=== PATIENT | male | born 1950 | race Caucasian/White ===

== ENCOUNTER 2021-01-05 16:41 | Inpatient (IN) | payer MEDICARE ==
[~2021-01-05] VITALS: Ht 182.9 cm; Wt 91.0 kg
[~2021-01-05 16:41] MED LIST: AMLO10TA4 PO; ASPI-630 PO; ATOR10TA PO; BUPR100T8 PO; CARV25TA PO; CLON0.3T PO; DOXA4TAB3 PO; FURO-69 PO; INSU100I13 SQ; INSU100V6 SQ; LISI20TA18 PO; OMEP20TA63 PO; ZOLP5TAB PO
--- NOTE | 2021-01-05 16:59 | PHYS DOC ---
Past Medical History Smoking Status: Former Smoker (SEGUN VARGAS DO) General Adult EDM: Chief Complaint: DIZZY/LIGHT HEADED HPI: HPI: 30-year-old male past medical history of diabetes, hypertension, depression and hydrocephalypresents to the ED brought in by [facility] from home (lives alone), with concern for dizziness and vomiting, such that patient thought he was going to faint and he fell out of his wheelchair. Glucose per ems was in the 200s. Home health aide is new to pt but reported he wasn't acting appropriately. Patient is nonambulatory. Patient reports he had full recall of today's events. Denies any alcohol or drug use. Does report constipation for the past 3 days and states he had a small amount of blood with his bowel movement 3 days ago. Complains of neck pain but states he did not hit his head when he "slid" out of the wheelchair. Last meal was this morning. Reports nausea and 1 episode of vomiting when feeling dizzy described as " I thought I was going to pass out." EMR was reviewed and patient was admitted in May 2020 for new stroke evaluation after patient had a syncopal episode with aphasia, MRI revealed normal pressure hydrocephaly. Neurology was concerned for hypertensive emergency. Reports he is on any anticoagulants. (SEGUN VARGAS DO) Review of Systems: Review of Systems: Constitutional: Denies fever or chills. [] Eyes: Denies change in visual acuity. [] HENT: Denies nasal congestion or sore throat. [] Respiratory: Denies cough or shortness of breath. [] Cardiovascular: Denies chest pain or edema. [] GI: Denies vomiting, bloody stools or diarrhea. [] : Denies saddle anesthesia or incontinence Musculoskeletal: Denies back pain or joint pain. [] Integument: Denies rash or diaphoresis Neurologic: Denies headache, focal weakness or sensory changes. [] Endocrine: Denies polyuria or polydipsia. [] Lymphatic: Denies swollen glands. [] Psychiatric: Denies depression or anxiety. [] (SEGUN VARGAS DO) Heart Score: C/O Chest Pain: No Risk Factors: Risk Factors: DM, Current or recent (<one month) smoker, HTN, HLP, family history of CAD, obesity. Risk Scores: Score 0 - 3: 2.5% MACE over next 6 weeks - Discharge Home Score 4 - 6: 20.3% MACE over next 6 weeks - Admit for Clinical Observation Score 7 - 10: 72.7% MACE over next 6 weeks - Early Invasive Strategies ([facility] Allergies: Allergies: Allergies Coded Allergies Type Severity Reaction Last Updated Verified morphine Allergy Intermediate 06/19/20 Yes ([facility]) Physical Exam: PE: Constitutional: Well developed, well nourished, no acute distress, non-toxic appearance. HENT: Normocephalic, atraumatic, very dry mucous membranes Eyes: PERRLA (2mm), EOMI, conjunctiva normal, no discharge, no nystagmus Neck: Normal range of motion, supple, no midline neck pain Cardiovascular: S1/2 present, regular rhythm Lungs & Thorax: Speaking in full sentences, bilateral equal chest rise, no tachypnea or increased work of breathing Abdomen: soft, no tenderness, slightly distended Skin: Warm, dry, no erythema, no rash. [] Extremities: No tenderness, no cyanosis, Neurologic: Alert and oriented X 3, normal motor function, normal sensory function, moves all 4 extremities, CN2-12 intact, NIHSS0, Psychologic: Flat affect, calm mood ([facility]) EKG: EKG: Sinus rhythm 60 bpm, left axis deviation, QRS 148, right bundle branch block present, no T wave inversion, no ST elevation or ST depression ([facility] Radiology/Procedures: Radiology/Procedures: [] ([facility]) Radiology/Procedures: Examination: CT head and cervical spine without contrast CT HEAD INDICATION: Dizziness, lightheadedness, fall COMPARISON: None Available. Exposure: One or more of the following individualized dose reduction techniques were utilized for this examination: 1. Automated exposure control 2. Adjustment of the mA and/or kV according to patient size 3. Use of iterative reconstruction technique TECHNIQUE: 5 mm contiguous axial images were obtained from the skull base to the vertex in both bone and soft tissue algorithm. FINDINGS: Moderate bilateral periventricular white matter hypodensities likely chronic small vessel ischemic disease. No evidence of acute intracranial hemorrhage. No extra-axial fluid collections. No mass effect or midline shift. Enlarged appearing bilateral lateral ventricles. Small hypodensities identified in the right and left cerebellum lik keisha old infarcts. No fractures identified.Mendoza-white differentiation is preserved.Globes and orbits are within normal limits. Paranasal sinuses and mastoid air cells are clear. CT CERVICAL SPINE INDICATION: Reason: confusion, DIZZY, LIGHTHEADNESS, FALL FROM SITTING POSITION / Spl. Instructions: / History: COMPARISON: None Available. Technique: 2.5 mm contiguous axial images were obtained from the skull base through the cervicothoracic junction in both bone and soft tissue algorithm. Additional sagittal and coronal reconstructions were also performed. FINDINGS: Vertebral body height and alignment are maintained. Cervical lordosis is preserved. The lateral masses of C1 are aligned upon C2. No fractures identified. The bony canal is patent throughout. Severe intervertebral disc height loss identified at C5-C6, C6-C7 vertebral levels with anterior osteophyte formation. There is some bony fusion identified at C5-C6 vertebral level. Moderate facet degenerative changes identified in the left C4-C5, C5-C6 facet joints. The paraspinous soft tissues are unremarkable. Visualized intracranial contents are unremarkable. Lung apices are clear. IMPRESSION: 1. No acute intracranial findings. 2. Enlarged appearing bilateral lateral ventricles, correlate clinically for normal pressure hydrocephalus. MRI follow-up can be considered. 3. 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 4. No acute fracture cervical spine. 5. Severe degenerative changes cervical spine. Electronically signed by: Raman Robles MD (01/05/2021 7:08 PM) [id number] /////////////////////////////// INDICATION: Reason: constipation / Spl. Instructions: / History: COMPARISON: None. TECHNIQUE: Axial CT images were obtained through the abdomen and pelvis without intravenous contrast. One or more of the following individualized dose reduction techniques were utilized for this examination: 1. Automated exposure control; 2. Adjustment of the mA and/or kV according to patient size; 3. Use of iterative reconstruction technique. FINDINGS: Vascular: Calcific atherosclerosis. Fat-containing left inguinal hernia. Hepatobiliary: No intrahepatic biliary duct dilation. Pancreas: No peripancreatic edema. Spleen: Low-density lesion within spleen measuring 13 mm which is too small to characterize on this noncontrast exam. Renal/Bladder: Suspected low-density lesion of the left kidney likely cystic in nature measuring 23 mm. Cannot adequately assess for a solid renal mass on noncontrast imaging. Lobulated kidneys. Mild left-sided hydronephrosis and distention of the left extrarenal pelvis. Urinary bladder somewhat distended at time of exam. Suspected cystic lesion of the right kidney. 1 mm calcification near the right proximal ureter which could either be a calcification along the wall or a tiny nonobstructive right ureter stone. Gastrointestinal: Wall thickening of the rectum with a large amount of stool within and mild haziness the fat with distention. This is also seen within the sigmoid colon. There is distention of the colon on the right side as well. No appendiceal inflammatory changes. Degenerative changes of the spine with multilevel central canal and neural foraminal stenosis. Suspected left 12th rib fracture with some callus formation. Grade 1 anterolisthesis of L4 on 5 IMPRESSION: * Dilation of portions the colon with stool with adjacent edema to the fat and thickening of the wall. This could be secondary to stercoral colitis. Would correlate with symptoms of fecal impaction. * Multiple low-density renal lesions which may be cystic in nature. Poor evaluation for solid lesion given lack of contrast. Mild left-sided hydronephrosis and distention of the left extrarenal pelvis without a definite radiopaque obstructive left ureter stone. There is a 1 mm calcification either along the wall of the right proximal ureter or within the lumen but this does not obstruct the lumen. Electronically signed by: Kike Israel MD (01/05/2021 7:28 PM) [id number] //////////////////////// (JARRET MATHIS DO) Course & Med Decision Making: Course & Med Decision Making Pertinent Labs and Imaging studies reviewed. (See chart for details) Concern for vasovagal near syncope in the setting of constipation, 1 episode of hematochezia. Labs, urinalysis, chest x-ray and CT imaging all pending. Due to shift change patient was signed out to oncoming physician Dr. Mathis for further medical evaluation and disposition. ([facility]) Course & Med Decision Making I assumed care of patient after comprehensive signout from off going physician I reviewed entirety of ER work-up and personally saw patient repeating aspects of history and physical exam. Patient still feeling dizzy without obvious inciting event/provoking factor. Has history of normal pressure hydrocephalus and has been at baseline health. I discussed utility of lumbar puncture but patient deferred. I also discussed patient's constipation which was reported on arrival. He had x1 nonbloody bowel movement while in ER with significant improvement in symptoms per patient Patient reevaluated numerous times by health professionals in ER setting, continues to feel dizzy at times. He has 24/7 care at home with [facility] health aide but states he is concerned about his wellbeing going home and their ability to provide comprehensive care for him Joint decision made at this time to admit patient for further work-up for his dizziness. Patient voicing that he does not have enough care at home to assist through personal deficits with current dizziness. Hospitalist contacted and case discussed, patient was excepted under the care of Dr. Milner I disclose conversation above with patient he was amenable to plan as stated. He does confirm prior to admission that he is DNR status (JARRET MATHIS DO) Dragon Disclaimer: Dragon Disclaimer: This electronic medical record was generated, in whole or in part, using a voice recognition dictation system. (SEGUN VARGAS DO) Departure Departure Impression: Primary Impression: Near syncope Additional Impression: Constipation Disposition: ADMITTED INPATIENT Admitting Physician: BIENVENIDO (DR MILNER) (JARRET MATHIS DO) Condition: STABLE Referrals: MARLENY SABILLON (PCP) SEGUN VARGAS DO Jan 05, 2021 16:59 JARRET MATHIS DO Jan 05, 2021 19:38
[2021-01-05] MEDS ORDERED: ONDANSETRON PF 4 MG/2 ML VIAL. IVP ONE (17:00)
[2021-01-05] MEDS ORDERED: IV NORMAL SALINE 1000ML BAG 1,000 ML IV ONE (17:00)
[2021-01-05 17:56] LABS: BASO # 0.1 x10^3/uL (0.0-0.2); BASO % 1 % (0-3); EOS # 0.2 x10^3/uL (0.0-0.7); EOS % 2 % (0-3); HEMATOCRIT 32.1 % (39.0-53.0); LYMPH # 0.8 x10^3/uL (1.0-4.8); LYMPH % 6 % (24-48); MEAN CORPUSCULAR HEMOGLOBIN 31 pg (25-35); MEAN CORPUSCULAR HGB CONC 34 g/dL (31-37); MEAN CORPUSCULAR VOLUME 89 fL (79-100); MONO # 0.8 x10^3/uL (0.0-1.1); MONO % 6 % (0-9); NEUT # 10.7 x10^3/uL (1.8-7.7); NEUT % 85 % (31-73); PLATELET COUNT 490 x10^3/uL (140-400); RED BLOOD COUNT 3.63 x10^6/uL (4.30-5.70); RED CELL DISTRIBUTION WIDTH 16.1 % (11.5-14.5); WHITE BLOOD COUNT 12.6 x10^3/uL (4.0-11.0)
[2021-01-05 18:07] LABS: CALCIUM 9.1 mg/dL (8.5-10.1); CREATININE 2.5 mg/dL (0.7-1.3); GFR 25.5; POTASSIUM 4.6 mmol/L (3.5-5.1)
[2021-01-05 18:16] LABS: ALBUMIN 3.2 g/dL (3.4-5.0); ALBUMIN/GLOBULIN RATIO 0.9 (1.0-1.7); TOTAL BILIRUBIN 0.4 mg/dL (0.2-1.0); TOTAL PROTEIN 6.9 g/dL (6.4-8.2)
--- NOTE | 2021-01-05 18:20 | EKG ---
[facility] [address] [place] [address] Test Date: 2021-01-05 Test Time: 17:28:16 Pat Name: YO MARSK Department: Room: Gender: M Sterile Process Coordinator: : 1950 Requested By: SEGUN VARGAS Order Number: [id number] Reading MD: Salty Crooks Measurements Intervals [employer] Rate: 62 P: 56 NC: 190 QRS: -59 QRSD: 148 T: 36 QT: 444 QTc: 453 Interpretive Statements SINUS RHYTHM ABNORMAL LEFT AXIS DEVIATION LEFT ANTERIOR FASCICULAR BLOCK RIGHT BUNDLE BRANCH BLOCK BIFASCICULAR BLOCK ABNORMAL ECG RI6.01 No previous ECG available for comparison Electronically Signed On 01-06-2021 12:41:20 CDT by Salty Crooks
--- NOTE | 2021-01-05 19:10 | RAD ---
Examination: CT head and cervical spine without contrast CT HEAD INDICATION: Dizziness, lightheadedness, fall COMPARISON: None Available. Exposure: One or more of the following individualized dose reduction techniques were utilized for thi s examination: 1. Automated exposure control 2. Adjustment of the mA and/or kV according to patient size 3. Use of iterative reconstruction technique TECHNIQUE: 5 mm contiguous axial images were obtained from the skull base to the vertex in both bone and soft tissue algorithm. FINDINGS: Moderate bilateral periventricular white matter hypodensities likely chronic small vessel ischemic di sease. No evidence of acute intracranial hemorrhage. No extra-axial fluid collections. No mass effect or midline shift. Enlarged appearing bilateral lateral ventricles. Small hypodensitie s identified in the right and left cerebellum likely old infarcts. No fractures identified.Mendoza-white differentiation is preserved.Globes and orbits are within normal l imits. Paranasal sinuses and mastoid air cells are clear. CT CERVICAL SPINE INDICATION: Reason: confusion, DIZZY, LIGHTHEADNESS, FALL FROM SITTING POSITION / Spl. Instructions: / History: COMPARISON: None Available. Technique: 2.5 mm contiguous axial images were obtained from the skull base through the cervicothorac ic junction in both bone and soft tissue algorithm. Additional sagittal and coronal reconstructions were also performed. FINDINGS: Vertebral body height and alignment are maintained. Cervical lordosis is preserved. The l ateral masses of C1 are aligned upon C2. No fractures identified. The bony canal is patent throughout. Severe intervertebral disc height loss identified at C5-C6, C6-C7 vertebral levels with anterior oste ophyte formation. There is some bony fusion identified at C5-C6 vertebral level. Moderate facet degen erative changes identified in the left C4-C5, C5-C6 facet joints. The paraspinous soft tissues are unremarkable. Visualized intracranial contents are unremarkable. L carlita apices are clear. IMPRESSION: 1. No acute intracranial findings. 2. Enlarged appearing bilateral lateral ventricles, correlate clinically for normal pressure hydroce phalus. MRI follow-up can be considered. 3. 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 4. No acute fracture cervical spine. 5. Severe degenerative changes cervical spine. Electronically signed by: Raman Robles MD (01/05/2021 7:08 PM) [id number]
--- NOTE | 2021-01-05 19:30 | RAD ---
INDICATION: Reason: constipation / Spl. Instructions: / History: COMPARISON: None. TECHNIQUE: Axial CT images were obtained through the abdomen and pelvis without intravenous contrast. One or more of the following individualized dose reduction techniques were utilized for this examinat ion: 1. Automated exposure control; 2. Adjustment of the mA and/or kV according to patient size; 3 . Use of iterative reconstruction technique. FINDINGS: Vascular: Calcific atherosclerosis. Fat-containing left inguinal hernia. Hepatobiliary: No intrahepatic biliary duct dilation. Pancreas: No peripancreatic edema. Spleen: Low-density lesion within spleen measuring 13 mm which is too small to characterize on this n oncontrast exam. Renal/Bladder: Suspected low-density lesion of the left kidney likely cystic in nature measuring 23 m m. Cannot adequately assess for a solid renal mass on noncontrast imaging. Lobulated kidneys. Mild le ft-sided hydronephrosis and distention of the left extrarenal pelvis. Urinary bladder somewhat disten ded at time of exam. Suspected cystic lesion of the right kidney. 1 mm calcification near the right p roximal ureter which could either be a calcification along the wall or a tiny nonobstructive right ur eter stone. Gastrointestinal: Wall thickening of the rectum with a large amount of stool within and mild haziness the fat with distention. This is also seen within the sigmoid colon. There is distention of the colo n on the right side as well. No appendiceal inflammatory changes. Degenerative changes of the spine with multilevel central canal and neural foraminal stenosis. Suspec raudel left 12th rib fracture with some callus formation. Grade 1 anterolisthesis of L4 on 5 IMPRESSION: * Dilation of portions the colon with stool with adjacent edema to the fat and thickening of the wa ll. This could be secondary to stercoral colitis. Would correlate with symptoms of fecal impaction. * Multiple low-density renal lesions which may be cystic in nature. Poor evaluation for solid lesion given lack of contrast. Mild left-sided hydronephrosis and distention of the left extrarenal pelvis without a definite radiopaque obstructive left ureter stone. There is a 1 mm calcification either ernesto ng the wall of the right proximal ureter or within the lumen but this does not obstruct the lumen. Electronically signed by: Kike Israel MD (01/05/2021 7:28 PM) Fluid [id number]
[2021-01-05] MEDS ORDERED: ACETAMINOPHEN 325 MG TABLET. PO PRN (20:15)
[2021-01-05] MEDS ORDERED: NITROGLYCERIN SUBLINGUAL 0.4 MG BOTTLE OF 25. SL PRN (20:15)
[2021-01-05 20:30] VITALS: BP 151/80
--- NOTE | 2021-01-05 20:39 | RAD ---
EXAM: CHEST 1 VIEW History: Near syncope COMPARISON: 06/19/2020 TECHNIQUE: Single portable radiograph of the chest FINDINGS: The cardiac silhouette is unremarkable. The lungs are clear bilaterally. The costophrenic sulci are clear and well demarcated. IMPRESSION: No radiographic evidence of an acute cardiopulmonary process. Electronically signed by: Raman Robles MD (01/05/2021 8:37 PM) [id number]
[2021-01-05] MEDS: ONDANSETRON PF 4 MG/2 ML VIAL. IVP PRN (20:49)
--- NOTE | 2021-01-05 21:00 | NUR ---
Patient arrived to floor from ER at 2044. Had a very large incontinent stool. While changing him he became nauseated then projectile vomited a copious amount of brown emesis; floor and porter needed cleaned and bed linens changed. No further vomiting as of 5am this morning.
[2021-01-05 23:00] VITALS: BP 173/80
[2021-01-06 03:00] VITALS: BP 145/76
[2021-01-06] MEDS: ONDANSETRON PF 4 MG/2 ML VIAL. IVP PRN ×3 (05:30→17:22)
[2021-01-06 07:00] VITALS: BP 167/76
--- NOTE | 2021-01-06 07:18 | PDOC1 ---
History and Physical Date of Service: DOS: DATE: 01/06/21 TIME: 07:00 Chief Complaint: Chief Complain: Constipated History of Present Illness: HPI: History obtained from discussion with the ED physician and chart review: 70-year-old male with past medical history of diabetes mellitus type 2, hypertension, depression, normal pressure hydrocephalus who presents to the ED from home after he had vomiting episodes and feeling constipation. Patient told his home health nurse that he just did not feel right and he was constipated for the last 3 days. Patient did complain of small amount of blood with his bowel movement that was 3 days ago. EMS arrived and reported sugars in the 200s. Patient had near syncopal episode where he did slide out of his wheelchair. No loss of consciousness or trauma to the head. Patient had multiple episodes of nausea vomiting at home and also in the ED and also when he was transferred up to the floor. Patient arrived to the ED and had large bowel movements x2. Both of them were nonbloody. Denies fevers, chest pain, abdominal pain, dysuria, hematuria. Nurse reported coffee-ground emesis. Past Medical/Surgical History: PMH/PSH: Past medical history: Diabetes mellitus type 2, hypertension, depression No past surgical history Allergies: Allergies: Coded Allergies: morphine (Verified Allergy, Intermediate, 06/19/20) quinine (Verified Allergy, Intermediate, 01/05/21) Family History: Family History: Reviewed with no relevant findings Social History: Social History: Occasional alcohol use, denies smoking or drug abuse. Current Medications: Current Medications Current Medications Sodium Chloride 1,000 ml @ 1,000 mls/hr 1X ONCE IV Last administered on 01/05/21at 18:33; Start 01/05/21 at 17:00; Stop 01/05/21 at 17:59; Status DC Ondansetron HCl (Zofran) 4 mg 1X ONCE IVP Last administered on 01/05/21at 18:32; Start 01/05/21 at 17:00; Stop 01/05/21 at 17:01; Status DC Ondansetron HCl (Zofran) 4 mg PRN Q8HRS PRN IVP NAUSEA/VOMITING Last administered on 01/06/21at 05:30; Start 01/05/21 at 20:15; Stop 01/06/21 at 20:14 Acetaminophen (Tylenol) 650 mg PRN Q4HRS PRN PO FEVER > 100.3'F; Start 01/05/21 at 20:15; Stop 01/06/21 at 20:14 Nitroglycerin (Nitrostat) 0.4 mg PRN Q5MIN PRN SL CHEST PAIN; Start 01/05/21 at 20:15; Stop 01/06/21 at 20:14 Active Scripts Active Reported Humalog (Insulin Lispro) 100 Unit/1 Ml Vial 100 Unit SQ TIDWMEALS Lantus Solostar (Insulin Glargine,Hum.rec.anlog) 100 Unit/1 Ml Insuln.pen 22 Unit SQ QHS Doxazosin Mesylate 4 Mg Tablet 4 Mg PO BID Lipitor (Atorvastatin Calcium) 10 Mg Tablet 10 Mg PO HS 1/2 TAB EVERY OTHER DAY Prilosec Otc (Omeprazole Magnesium) 20 Mg Tablet.dr 20 Mg PO DAILY Aspirin 81 Mg Tab.chew 81 Mg PO DAILY Norvasc (Amlodipine Besylate) 10 Mg Tablet 10 Mg PO DAILY Clonidine Hcl 0.3 Mg Tablet 0.3 Mg PO TID Coreg (Carvedilol) 25 Mg Tablet 3.125 Mg PO TIDWMEALS Ambien (Zolpidem Tartrate) 5 Mg Tablet 2.5 Mg PO PRN QHS PRN Bupropion Hcl Sr (Bupropion Hcl) 100 Mg Tablet.er 100 Mg PO DAILY Lisinopril 20 Mg Tablet 20 Mg PO BID Lasix (Furosemide) 20 Mg Tablet 60 Mg PO DAILY ROS: Review of Systems Review of System REVIEW OF SYSTEMS: GENERAL: Denies weakness SKIN: No bruising, hair changes or rashes. EYES: No blurred, double or loss of vision. NOSE AND THROAT: No history of nosebleeds, hoarseness or sore throat. HEART: No history of palpitations, chest pain or shortness of breath on exertion. LUNGS: Denies cough, hemoptysis, wheezing or shortness of breath. GASTROINTESTINAL: Denies changes in appetite, nausea, vomiting, diarrhea or constipation. GENITOURINARY: No history of frequency, urgency, hesitancy or nocturia. NEUROLOGIC: Denies history of numbness, tingling, or tremor. PSYCHIATRIC: No history of panic, anxiety or depression. ENDOCRINE: No history of heat or cold intolerance, polyuria or polydipsia. EXTREMITIES: Denies joint pain, pain on walking or stiffness. Physical Exam: Vital Signs: Vital Signs Date Time Temp Pulse Resp B/P (MAP) Pulse Ox O2 Delivery O2 Flow Rate FiO2 01/06/21 03:00 98.8 92 20 145/76 (99) 96 Room Air 98.8 Physcial Exam: General: Well developed, well nourished, no acute distress, well appearing HEENT: Pupils equally round and reactive to light, EOMI, no discharge, normal conjunctiva Neck: Supple, no nuchal rigidity, no JVD, trachea midline, no tenderness Cardiac: RRR, no murmurs, no gallops, no rubs Chest/Lungs: CTAB, no wheeze, no rhonchi, no crackles Abdomen: soft, non-distended, no guarding, no peritoneal signs, non-tender Back: No tenderness Extremities: no edema, pulses intact, non-tender,capillary refill <3 sec bilateral upper and lower extremities, Neuro: Alert and oriented x 4, no focal deficits, normal speech Labs: Labs: Laboratory Tests Test 01/05/21 17:30 White Blood Count 12.6 x10^3/uL (4.0-11.0) Red Blood Count 3.63 x10^6/uL (4.30-5.70) Hemoglobin 11.0 g/dL (13.0-17.5) Hematocrit 32.1 % (39.0-53.0) Mean Corpuscular Volume 89 fL (79-100) Mean Corpuscular Hemoglobin 31 pg (25-35) Mean Corpuscular Hemoglobin Concent 34 g/dL (31-37) Red Cell Distribution Width 16.1 % (11.5-14.5) Platelet Count 490 x10^3/uL (140-400) Neutrophils (%) (Auto) 85 % (31-73) Lymphocytes (%) (Auto) 6 % (24-48) Monocytes (%) (Auto) 6 % (0-9) Eosinophils (%) (Auto) 2 % (0-3) Basophils (%) (Auto) 1 % (0-3) Neutrophils # (Auto) 10.7 x10^3/uL (1.8-7.7) Lymphocytes # (Auto) 0.8 x10^3/uL (1.0-4.8) Monocytes # (Auto) 0.8 x10^3/uL (0.0-1.1) Eosinophils # (Auto) 0.2 x10^3/uL (0.0-0.7) Basophils # (Auto) 0.1 x10^3/uL (0.0-0.2) Sodium Level 134 mmol/L (136-145) Potassium Level 4.6 mmol/L (3.5-5.1) Chloride Level 98 mmol/L (98-107) Carbon Dioxide Level 30 mmol/L (21-32) Anion Gap 6 (6-14) Blood Urea Nitrogen 51 mg/dL (8-26) Creatinine 2.5 mg/dL (0.7-1.3) Estimated GFR (Cockcroft-Gault) 25.5 BUN/Creatinine Ratio 20 (6-20) Glucose Level 91 mg/dL (70-99) Calcium Level 9.1 mg/dL (8.5-10.1) Magnesium Level 2.6 mg/dL (1.8-2.4) Total Bilirubin 0.4 mg/dL (0.2-1.0) Aspartate Amino Transf (AST/SGOT) 12 U/L (15-37) Alanine Aminotransferase (ALT/SGPT) 17 U/L (16-63) Alkaline Phosphatase 74 U/L (46-116) Creatine Kinase 52 U/L (39-308) Troponin I Quantitative < 0.017 ng/mL (0.000-0.055) Total Protein 6.9 g/dL (6.4-8.2) Albumin 3.2 g/dL (3.4-5.0) Albumin/Globulin Ratio 0.9 (1.0-1.7) Lipase 41 U/L (73-393) Laboratory Tests Test 01/05/21 17:30 White Blood Count 12.6 x10^3/uL (4.0-11.0) Red Blood Count 3.63 x10^6/uL (4.30-5.70) Hemoglobin 11.0 g/dL (13.0-17.5) Hematocrit 32.1 % (39.0-53.0) Mean Corpuscular Volume 89 fL (79-100) Mean Corpuscular Hemoglobin 31 pg (25-35) Mean Corpuscular Hemoglobin Concent 34 g/dL (31-37) Red Cell Distribution Width 16.1 % (11.5-14.5) Platelet Count 490 x10^3/uL (140-400) Neutrophils (%) (Auto) 85 % (31-73) Lymphocytes (%) (Auto) 6 % (24-48) Monocytes (%) (Auto) 6 % (0-9) Eosinophils (%) (Auto) 2 % (0-3) Basophils (%) (Auto) 1 % (0-3) Neutrophils # (Auto) 10.7 x10^3/uL (1.8-7.7) Lymphocytes # (Auto) 0.8 x10^3/uL (1.0-4.8) Monocytes # (Auto) 0.8 x10^3/uL (0.0-1.1) Eosinophils # (Auto) 0.2 x10^3/uL (0.0-0.7) Basophils # (Auto) 0.1 x10^3/uL (0.0-0.2) Sodium Level 134 mmol/L (136-145) Potassium Level 4.6 mmol/L (3.5-5.1) Chloride Level 98 mmol/L (98-107) Carbon Dioxide Level 30 mmol/L (21-32) Anion Gap 6 (6-14) Blood Urea Nitrogen 51 mg/dL (8-26) Creatinine 2.5 mg/dL (0.7-1.3) Estimated GFR (Cockcroft-Gault) 25.5 BUN/Creatinine Ratio 20 (6-20) Glucose Level 91 mg/dL (70-99) Calcium Level 9.1 mg/dL (8.5-10.1) Magnesium Level 2.6 mg/dL (1.8-2.4) Total Bilirubin 0.4 mg/dL (0.2-1.0) Aspartate Amino Transf (AST/SGOT) 12 U/L (15-37) Alanine Aminotransferase (ALT/SGPT) 17 U/L (16-63) Alkaline Phosphatase 74 U/L (46-116) Creatine Kinase 52 U/L (39-308) Troponin I Quantitative < 0.017 ng/mL (0.000-0.055) Total Protein 6.9 g/dL (6.4-8.2) Albumin 3.2 g/dL (3.4-5.0) Albumin/Globulin Ratio 0.9 (1.0-1.7) Lipase 41 U/L (73-393) Images: Images PROCEDURE: CT HEAD AND CERVICAL SPINE WO Examination: CT head and cervical spine without contrast CT HEAD INDICATION: Dizziness, lightheadedness, fall COMPARISON: None Available. Exposure: One or more of the following individualized dose reduction techniques were utilized for this examination: 1. Automated exposure control 2. Adjustment of the mA and/or kV according to patient size 3. Use of iterative reconstruction technique TECHNIQUE: 5 mm contiguous axial images were obtained from the skull base to the vertex in both bone and soft tissue algorithm. FINDINGS: Moderate bilateral periventricular white matter hypodensities likely chronic small vessel ischemic disease. No evidence of acute intracranial hemorrhage. No extra-axial fluid collections. No mass effect or midline shift. Enlarged appearing bilateral lateral ventricles. 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 No fractures identified.Mendoza-white differentiation is preserved.Globes and orbits are within normal limits. Paranasal sinuses and mastoid air cells are clear. CT CERVICAL SPINE INDICATION: Reason: confusion, DIZZY, LIGHTHEADNESS, FALL FROM SITTING POSITION / Spl. Instructions: / History: COMPARISON: None Available. Technique: 2.5 mm contiguous axial images were obtained from the skull base through the cervicothoracic junction in both bone and soft tissue algorithm. Additional sagittal and coronal reconstructions were also performed. FINDINGS: Vertebral body height and alignment are maintained. Cervical lordosis is preserved. The lateral masses of C1 are aligned upon C2. No fractures identified. The bony canal is patent throughout. Severe intervertebral disc height loss identified at C5-C6, C6-C7 vertebral levels with anterior osteophyte formation. There is some bony fusion identified at C5-C6 vertebral level. Moderate facet degenerative changes identified in the left C4-C5, C5-C6 facet joints. The paraspinous soft tissues are unremarkable. Visualized intracranial contents are unremarkable. Lung apices are clear. IMPRESSION: 1. No acute intracranial findings. 2. Enlarged appearing bilateral lateral ventricles, correlate clinically for normal pressure hydrocephalus. MRI follow-up can be considered. 3. 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 4. No acute fracture cervical spine. 5. Severe degenerative changes cervical spine. PROCEDURE: CT ABDOMEN PELVIS WO CONTRAST INDICATION: Reason: constipation / Spl. Instructions: / History: COMPARISON: None. TECHNIQUE: Axial CT images were obtained through the abdomen and pelvis without intravenous contrast. One or more of the following individualized dose reduction techniques were utilized for this examination: 1. Automated exposure control; 2. Adjustment of the mA and/or kV according to patient size; 3. Use of iterative reconstruction technique. FINDINGS: Vascular: Calcific atherosclerosis. Fat-containing left inguinal hernia. Hepatobiliary: No intrahepatic biliary duct dilation. Pancreas: No peripancreatic edema. Spleen: Low-density lesion within spleen measuring 13 mm which is too small to characterize on this noncontrast exam. Renal/Bladder: Suspected low-density lesion of the left kidney likely cystic in nature measuring 23 mm. Cannot adequately assess for a solid renal mass on noncontrast imaging. Lobulated kidneys. Mild left-sided hydronephrosis and di stention of the left extrarenal pelvis. Urinary bladder somewhat distended at time of exam. Suspected cystic lesion of the right kidney. 1 mm calcification near the right proximal ureter which could either be a calcification along the wall or a tiny nonobstructive right ureter stone. Gastrointestinal: Wall thickening of the rectum with a large amount of stool within and mild haziness the fat with distention. This is also seen within the sigmoid colon. There is distention of the colon on the right side as well. No appendiceal inflammatory changes. Degenerative changes of the spine with multilevel central canal and neural foraminal stenosis. Suspected left 12th rib fracture with some callus formation. Grade 1 anterolisthesis of L4 on 5 IMPRESSION: * Dilation of portions the colon with stool with adjacent edema to the fat and thickening of the wall. This could be secondary to stercoral colitis. Would correlate with symptoms of fecal impaction. * Multiple low-density renal lesions which may be cystic in nature. Poor evaluation for solid lesion given lack of contrast. Mild left-sided hydronephrosis and distention of the left extrarenal pelvis without a definite radiopaque obstructive left ureter stone. There is a 1 mm calcification either along the wall of the right proximal ureter or within the lumen but this does not obstruct the lumen. 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 Justifications for Admission Other Justification CALVIN SHERWOOD MD Jan 06, 2021 07:18
[2021-01-06 07:28] LABS: BASO % 0 % (0-3); EOS % 0 % (0-3); HEMATOCRIT 32.3 % (39.0-53.0); HEMOGLOBIN 10.8 g/dL (13.0-17.5); LYMPH # 1.1 x10^3/uL (1.0-4.8); LYMPH % 7 % (24-48); MEAN CORPUSCULAR HEMOGLOBIN 30 pg (25-35); MEAN CORPUSCULAR HGB CONC 34 g/dL (31-37); MEAN CORPUSCULAR VOLUME 89 fL (79-100); MONO # 0.6 x10^3/uL (0.0-1.1); MONO % 4 % (0-9); NEUT # 13.4 x10^3/uL (1.8-7.7); NEUT % 89 % (31-73); PLATELET COUNT 490 x10^3/uL (140-400); RED BLOOD COUNT 3.63 x10^6/uL (4.30-5.70); RED CELL DISTRIBUTION WIDTH 15.7 % (11.5-14.5); WHITE BLOOD COUNT 15.2 x10^3/uL (4.0-11.0)
[2021-01-06] MEDS ORDERED: ZOLPIDEM 5 MG TABLET. PO PRN ×2 (08:15→09:30)
[2021-01-06] MEDS ORDERED: SENNOSIDES 8.6 MG TABLET PO PRN (08:15)
[2021-01-06] MEDS ORDERED: LORazepam 0.5 MG TABLET PO PRN (08:15)
[2021-01-06] MEDS ORDERED: DOCUSATE SODIUM 100 MG CAPSULE. PO PRN (08:15)
[2021-01-06] MEDS ORDERED: ACETAMINOPHEN 325 MG TABLET. PO PRN (08:15)
[2021-01-06] MEDS ORDERED: IV NORMAL SALINE 1000ML BAG 1,000 ML IV ONE (08:15)
[2021-01-06] MEDS ORDERED: DEXTROSE 50% 25 GM / 50ML DISP.SYRIN. IV PRN ×2 (08:15→09:30)
[2021-01-06] MEDS ORDERED: PROCHLORPERAZINE 10 MG/2 ML VIAL. IV PRN (08:15)
[2021-01-06 08:46] LABS: CALCIUM 8.5 mg/dL (8.5-10.1); CREATININE 2.6 mg/dL (0.7-1.3); GFR 24.4; MAGNESIUM 2.4 mg/dL (1.8-2.4); POTASSIUM 4.5 mmol/L (3.5-5.1)
[2021-01-06] MEDS ORDERED: ENOXAPARIN 30 MG/0.3 ML SYRINGE. SQ SCH (09:00)
--- NOTE | 2021-01-06 09:56 | PDOC2 ---
GI CONSULT Date of Service: DATE: 01/06/21 TIME: 09:56 Reason For Consult: upper vs lower GI bleed HPI: HPI: 70 y/o male who has felt sick for a couple days. Currently w/ hiccups, finding it difficult to talk much. Other notes mention constipation and vomiting - he reports a few days of const ipation which is unusual for him. Has apparently had a couple large stools since admission. At home, noted small amount of red blood on toilet tissue w/ straining. No recurrence. Has vomited twice since admission - "dark, cam black." No chronic n/v. Chart also mentions dizziness/lightheadness. H/o GERD controlled w/ omeprazole QD. Denies dysphagia, abd pain, diarrhea, palomo alvina, and weight loss. Was eating normally prior to admission. Reports normal EGD and colonoscopy ~7 years ago @ [facility] - was advised to return when he was 73. No GB, liver, pancreas, or PUD history. No NSAIDs. Reviewed chart and d/w staff - "brown" and "coffee-ground" emesis witnessed. Takes ASA 81mg QD. H/o DM - says good glucose control at home (A1c 7.5 in 05/2020). Aware of "mild anemia" - says he takes B12 at home (but not sure if this is for anemia). Hgb 9-10 range when here in 05/2020, B12 normal. Received COVID vaccine. PMH: PMH: HTN, DM, CKD, depression, skin cancer, normal pressure hydrocephalus FH: Family History: No pertinent hx (denies GI cancers) Social History: Smoke: Quit ALCOHOL: occassional (wine) Drugs: None ROS: GEN: Denies fevers, chills, sweats HEENT: Denies blurred vision, sore throat CV: Denies chest pain RESP: Denies shortness of air, cough GI: Per HPI : Denies hematuria, dysuria ENDO: Denies weight changes NEURO: Denies confusion, dizziness MSK: Denies weakness, joint pain/swelling SKIN: Denies jaundice, pruritus Vitals: Vitals: Vital Signs Date Time Temp Pulse Resp B/P (MAP) Pulse Ox O2 Delivery O2 Flow Rate FiO2 01/06/21 07:00 98.3 107 18 167/76 (106) 95 Room Air 98.3 Labs: Labs: Laboratory Tests Test 01/05/21 17:30 01/06/21 05:45 01/06/21 07:19 White Blood Count 12.6 x10^3/uL (4.0-11.0) 15.2 x10^3/uL (4.0-11.0) Red Blood Count 3.63 x10^6/uL (4.30-5.70) 3.63 x10^6/uL (4.30-5.70) Hemoglobin 11.0 g/dL (13.0-17.5) 10.8 g/dL (13.0-17.5) Hematocrit 32.1 % (39.0-53.0) 32.3 % (39.0-53.0) Mean Corpuscular Volume 89 fL (79-100) 89 fL (79-100) Mean Corpuscular Hemoglobin 31 pg (25-35) 30 pg (25-35) Mean Corpuscular Hemoglobin Concent 34 g/dL (31-37) 34 g/dL (31-37) Red Cell Distribution Width 16.1 % (11.5-14.5) 15.7 % (11.5-14.5) Platelet Count 490 x10^3/uL (140-400) 490 x10^3/uL (140-400) Neutrophils (%) (Auto) 85 % (31-73) 89 % (31-73) Lymphocytes (%) (Auto) 6 % (24-48) 7 % (24-48) Monocytes (%) (Auto) 6 % (0-9) 4 % (0-9) Eosinophils (%) (Auto) 2 % (0-3) 0 % (0-3) Basophils (%) (Auto) 1 % (0-3) 0 % (0-3) Neutrophils # (Auto) 10.7 x10^3/uL (1.8-7.7) 13.4 x10^3/uL (1.8-7.7) Lymphocytes # (Auto) 0.8 x10^3/uL (1.0-4.8) 1.1 x10^3/uL (1.0-4.8) Monocytes # (Auto) 0.8 x10^3/uL (0.0-1.1) 0.6 x10^3/uL (0.0-1.1) Eosinophils # (Auto) 0.2 x10^3/uL (0.0-0.7) 0.0 x10^3/uL (0.0-0.7) Basophils # (Auto) 0.1 x10^3/uL (0.0-0.2) 0.0 x10^3/uL (0.0-0.2) Sodium Level 134 mmol/L (136-145) 133 mmol/L (136-145) Potassium Level 4.6 mmol/L (3.5-5.1) 4.5 mmol/L (3.5-5.1) Chloride Level 98 mmol/L (98-107) 95 mmol/L (98-107) Carbon Dioxide Level 30 mmol/L (21-32) 23 mmol/L (21-32) Anion Gap 6 (6-14) 15 (6-14) Blood Urea Nitrogen 51 mg/dL (8-26) 57 mg/dL (8-26) Creatinine 2.5 mg/dL (0.7-1.3) 2.6 mg/dL (0.7-1.3) Estimated GFR (Cockcroft-Gault) 25.5 24.4 BUN/Creatinine Ratio 20 (6-20) Glucose Level 91 mg/dL (70-99) 352 mg/dL (70-99) Calcium Level 9.1 mg/dL (8.5-10.1) 8.5 mg/dL (8.5-10.1) Magnesium Level 2.6 mg/dL (1.8-2.4) 2.4 mg/dL (1.8-2.4) Total Bilirubin 0.4 mg/dL (0.2-1.0) Aspartate Amino Transf (AST/SGOT) 12 U/L (15-37) Alanine Aminotransferase (ALT/SGPT) 17 U/L (16-63) Alkaline Phosphatase 74 U/L (46-116) Creatine Kinase 52 U/L (39-308) Troponin I Quantitative < 0.017 ng/mL (0.000-0.055) Total Protein 6.9 g/dL (6.4-8.2) Albumin 3.2 g/dL (3.4-5.0) Albumin/Globulin Ratio 0.9 (1.0-1.7) Lipase 41 U/L (73-393) Glucose (Fingerstick) 362 mg/dL (70-99) Allergies: Coded Allergies: morphine (Verified Allergy, Intermediate, 06/19/20) quinine (Verified Allergy, Intermediate, 01/05/21) Medications: Current Medications Medications (Trade) Dose Ordered Sig/Raghu Route PRN Reason Start Time Stop Time Status Last Admin Dose Admin Sodium Chloride 1,000 ml @ 1,000 mls/hr 1X ONCE IV 01/05/21 17:00 01/05/21 17:59 DC 01/05/21 18:33 Ondansetron HCl (Zofran) 4 mg 1X ONCE IVP 01/05/21 17:00 01/05/21 17:01 DC 01/05/21 18:32 Ondansetron HCl (Zofran) 4 mg PRN Q8HRS PRN IVP NAUSEA/VOMITING 01/05/21 20:15 01/06/21 09:32 DC 01/06/21 05:30 Sodium Chloride 1,000 ml @ 125 mls/hr 1X ONCE IV 01/06/21 08:15 01/06/21 16:14 01/06/21 09:25 Ondansetron HCl (Zofran) 4 mg PRN Q6HRS PRN IVP NAUSEA/VOMITING 01/06/21 08:15 01/06/21 09:24 Enoxaparin Sodium (Lovenox 30mg Syringe) 30 mg DAILY SQ 01/06/21 09:00 01/06/21 09:24 Imaging: Imaging: CT A/P FINDINGS: Vascular: Calcific atherosclerosis. Fat-containing left inguinal hernia. Hepatobiliary: No intrahepatic biliary duct dilation. Pancreas: No peripancreatic edema. Spleen: Low-density lesion within spleen measuring 13 mm which is too small to characterize on this noncontrast exam. Renal/Bladder: Suspected low-density lesion of the left kidney likely cystic in nature measuring 23 mm. Cannot adequately assess for a solid renal mass on noncontrast imaging. Lobulated kidneys. Mild left-sided hydronephrosis and distention of the left extrarenal pelvis. Urinary bladder somewhat distended at time of exam. Suspected cystic lesion of the right kidney. 1 mm calcification near the right proximal ureter which could either be a calcification along the wall or a tiny nonobstructive right ureter stone. Gastrointestinal: Wall thickening of the rectum with a large amount of stool within and mild haziness the fat with distention. This is also seen within the sigmoid colon. There is distention of the colon on the right side as well. No appendiceal inflammatory changes. Degenerative changes of the spine with multilevel central canal and neural foraminal stenosis. Suspected left 12th rib fracture with some callus formation. Grade 1 anterolisthesis of L4 on 5 IMPRESSION: * Dilation of portions the colon with stool with adjacent edema to the fat and thickening of the wall. This could be secondary to stercoral colitis. Would marcos elate with symptoms of fecal impaction. * Multiple low-density renal lesions which may be cystic in nature. Poor evaluation for solid lesion given lack of contrast. Mild left-sided hydronephrosis and distention of the left extrarenal pelvis without a definite radiopaque obstructive left ureter stone. There is a 1 mm calcification either along the wall of the right proximal ureter or within the lumen but this does not obstruct the lumen. CXR IMPRESSION: No radiographic evidence of an acute cardiopulmonary process. Head CT IMPRESSION: 1. No acute intracranial findings. 2. Enlarged appearing bilateral lateral ventricles, correlate clinically for normal pressure hydrocephalus. MRI follow-up can be considered. 3. 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 4. No acute fracture cervical spine. 5. Severe degenerative changes cervical spine. PE: GEN: hiccups HEENT: Atraumatic, PERRL LUNGS: CTAB anteriorly HEART: mildly tachcyardic ABD: NABS, S/ND/NT EXTREMITY: No edema SKIN: No rashes, no jaundice NEURO/PSYCH: A & O 3 A/P: A/P: Constipation - resolved Vomiting, concern for "coffee-ground emesis" ?near-syncope Chronic anemia - stable compared to past labs (here and [facility]) Leukocytosis, CKD, hyperglycemia/DM (A1c 7.5 in 05/2020) Abnormal CT - dilation of portions the colon with stool with adjacent edema to the fat and thickening of the wall H/o GERD - on PPI CRC screen - reportedly normal ~7 years ago Rectal bleeding - prior to admission w/ straining, ?hemorrhoids -- Hiccups improved during our conversation. Agree w/ IV PPI. Check iron studies. Observe for now from GI standpoint. Has clear liquid tray in room - okay to try a few sips. ?delayed gastric emptying w/ DM/hyperglycemia Treat constipation as needed. TEMO GARCÍA Jan 06, 2021 09:56
--- NOTE | 2021-01-06 10:37 | NUR ---
SW following. Discussed with RN, pt from home alone, room air, regular diet. GI following. Pt has 24 hour caregivers and [facility] at home. PT/OT ordered. SW will continue to follow.
[2021-01-06 11:00] VITALS: BP 154/69
[2021-01-06 11:16] LABS: % BANDS 1 % (0-9); % LYMPHS 5 % (24-48); % MONOS 1 % (0-10); % SEGS 93 % (35-66); PLT ESTIMATE INCREASED (ADEQUATE)
[2021-01-06] MEDS: PANTOPRAZOLE IV PUSH 40 MG VIAL. IVP SCH (11:30)
[2021-01-06] MEDS ORDERED: INSULIN LISPRO 300 UNITS/3 ML VIAL. SQ SCH (12:00)
[2021-01-06] MEDS: CARVEDILOL 3.125 MG TABLET. PO SCH ×2 (12:00→17:22)
[2021-01-06] MEDS: buPROPion SR 100 MG TABLET.SA. PO SCH (13:24)
[2021-01-06] MEDS: cloNIDine HCL 0.3 MG TABLET PO SCH ×2 (13:24→21:07)
[2021-01-06] MEDS ORDERED: INSULIN LISPRO 300 UNITS/3 ML VIAL. SQ ONE ×2 (13:30→17:15)
[2021-01-06 15:00] VITALS: BP 140/63
[2021-01-06] MEDS: INSULIN LISPRO 300 UNITS/3 ML VIAL. SQ SCH (17:27)
[2021-01-06 19:00] VITALS: BP 136/60
[2021-01-06] MEDS ORDERED: INSULIN GLARGINE SYRINGE. SQ SCH (21:00)
[2021-01-06] MEDS: ATORVASTATIN CALCIUM 10 MG TABLET. PO SCH (21:07)
[2021-01-06] MEDS: INSULIN GLARGINE SYRINGE. SQ SCH (21:11)
[2021-01-06 23:00] VITALS: BP 137/63
[2021-01-07 03:00] VITALS: BP 145/65
[2021-01-07 07:00] VITALS: BP 178/86
[2021-01-07 07:37] LABS: BASO # 0.1 x10^3/uL (0.0-0.2); BASO % 1 % (0-3); EOS # 0.3 x10^3/uL (0.0-0.7); EOS % 2 % (0-3); HEMATOCRIT 28.4 % (39.0-53.0); HEMOGLOBIN 9.5 g/dL (13.0-17.5); LYMPH # 1.7 x10^3/uL (1.0-4.8); LYMPH % 12 % (24-48); MEAN CORPUSCULAR HEMOGLOBIN 30 pg (25-35); MEAN CORPUSCULAR HGB CONC 33 g/dL (31-37); MEAN CORPUSCULAR VOLUME 90 fL (79-100); MONO # 1.1 x10^3/uL (0.0-1.1); MONO % 8 % (0-9); NEUT # 10.8 x10^3/uL (1.8-7.7); NEUT % 77 % (31-73); PLATELET COUNT 478 x10^3/uL (140-400); RED BLOOD COUNT 3.17 x10^6/uL (4.30-5.70); RED CELL DISTRIBUTION WIDTH 15.8 % (11.5-14.5)
[2021-01-07 07:50] LABS: CALCIUM 8.5 mg/dL (8.5-10.1); GFR 20.7; MAGNESIUM 2.6 mg/dL (1.8-2.4); PHOSPHORUS 3.3 mg/dL (2.6-4.7); POTASSIUM 4.2 mmol/L (3.5-5.1)
[2021-01-07] MEDS: cloNIDine HCL 0.3 MG TABLET PO SCH ×3 (07:56→21:52)
[2021-01-07] MEDS: buPROPion SR 100 MG TABLET.SA. PO SCH (07:56)
[2021-01-07] MEDS: PANTOPRAZOLE IV PUSH 40 MG VIAL. IVP SCH (07:56)
[2021-01-07] MEDS: INSULIN LISPRO 300 UNITS/3 ML VIAL. SQ SCH ×3 (08:02→17:40)
[2021-01-07] MEDS: CARVEDILOL 3.125 MG TABLET. PO SCH ×3 (08:32→17:37)
[2021-01-07 11:00] VITALS: BP 140/63
--- NOTE | 2021-01-07 11:07 | NUR ---
SW following. Discussed with RN, pt from home with 24 hour caregivers and [facility]. PT/OT ordered. SW will continue to follow.
--- NOTE | 2021-01-07 12:01 | PDOC ---
Date of Service: DATE: 01/07/21 TIME: 11:59 Subjective: Subjective: Feels "pretty darn good." No recurrent vomiting, no abd pain, wants "real food." Objective: Objective: No bleeding per nurse. Vital Signs: Vital Signs Date Time Temp Pulse Resp B/P (MAP) Pulse Ox O2 Delivery O2 Flow Rate FiO2 01/07/21 11:00 97.9 66 20 140/63 (88) 96 Room Air 97.9 Labs: Laboratory Tests Test 01/06/21 17:00 01/06/21 20:07 01/07/21 05:55 01/07/21 06:55 Glucose (Fingerstick) 568 mg/dL 355 mg/dL Sodium Level 139 mmol/L Potassium Level 4.2 mmol/L Chloride Level 102 mmol/L Carbon Dioxide Level 29 mmol/L Anion Gap 8 Blood Urea Nitrogen 68 mg/dL Creatinine 3.0 mg/dL Estimated GFR (Cockcroft-Gault) 20.7 Glucose Level 256 mg/dL Calcium Level 8.5 mg/dL Phosphorus Level 3.3 mg/dL Magnesium Level 2.6 mg/dL White Blood Count 14.0 x10^3/uL Red Blood Count 3.17 x10^6/uL Hemoglobin 9.5 g/dL Hematocrit 28.4 % Mean Corpuscular Volume 90 fL Mean Corpuscular Hemoglobin 30 pg Mean Corpuscular Hemoglobin Concent 33 g/dL Red Cell Distribution Width 15.8 % Platelet Count 478 x10^3/uL Neutrophils (%) (Auto) 77 % Lymphocytes (%) (Auto) 12 % Monocytes (%) (Auto) 8 % Eosinophils (%) (Auto) 2 % Basophils (%) (Auto) 1 % Neutrophils # (Auto) 10.8 x10^3/uL Lymphocytes # (Auto) 1.7 x10^3/uL Monocytes # (Auto) 1.1 x10^3/uL Eosinophils # (Auto) 0.3 x10^3/uL Basophils # (Auto) 0.1 x10^3/uL Test 01/07/21 07:01 Glucose (Fingerstick) 283 mg/dL PE: GEN: NAD LUNGS: CTAB HEART: RRR ABD: NABS, S/ND/NT NEURO/PSYCH: A & O 3 A/P: Vomiting - resolved ACD/KELSIE - some drift, not outside baseline Leukocytosis, CKD, hyperglycemia/DM H/o GERD -- ADAT. PO PPI. Justicifation of Admission Dx: Justifications for Admission: Justification of Admission Dx: Yes Hypertension: Cresendo Worsening of Sym TEMO GARCÍA Jan 07, 2021 12:01
[2021-01-07] MEDS: IV NORMAL SALINE 1000ML BAG 1,000 ML IV SCH ×2 (12:28→21:52)
--- NOTE | 2021-01-07 12:57 | PDOC ---
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 Adjusted insulin regimen and tightened insulin sliding scale with inpatient goals of 1 40-1 80 Continue IV fluids GI consult PT OT Continue bowel regimen Hold for now for DVT prophylaxis Protonix GI prophylaxis ADA diet CODE STATUS DNR Discussed with RN and SW Disposition inpatient management as above DPOA: Shanel Martinez History of Present Illness History of Present Illness 70-year-old male with past medical history of diabetes mellitus type 2, hypertension, depression, normal pressure hydrocephalus who presents to the ED from home after he had vomiting episodes and feeling constipation. Patient told his home health nurse that he just did not feel right and he was constipated for the last 3 days. Patient did complain of small amount of blood with his bowel movement that was 3 days ago. EMS arrived and reported sugars in the 200s. Patient had near syncopal episode where he did slide out of his wheelchair. No loss of consciousness or trauma to the head. Patient had multiple episodes of nausea vomiting at home and also in the ED and also when he was transferred up to the floor. Patient arrived to the ED and had large bowel movements x2. Both of them were nonbloody. Denies fevers, chest pain, abdominal pain, dysuria, hematuria. Nurse reported coffee-ground emesis. 01/07/2021 No acute events overnight. Patient seen and examined bedside. No reported e pisodes of coffee-ground emesis or diarrhea or constipation. Patient wants to eat. We will continue with IV fluids due to elevating creatinine. We will continue to trend and anticipate discharge tomorrow if creatinine trending downwards or remained stable. Patient's chart, labs, images were reviewed and discussed with RN Vitals/I&O Vitals/I&O: Vital Signs Date Time Temp Pulse Resp B/P (MAP) Pulse Ox O2 Delivery O2 Flow Rate FiO2 01/07/21 12:28 66 140/63 01/07/21 11:00 97.9 20 96 Room Air 97.9 I & O 01/06/21 01/06/21 01/07/21 15:00 23:00 07:00 Intake Total 120 ml 120 ml 120 ml Balance 120 ml 120 ml 120 ml Physical Exam General: Alert, Oriented X3, Cooperative Heart: Regular rate Lungs: Clear, Crackles Abdomen: Normal bowel sounds Extremities: No clubbing Skin: No rashes Labs Labs: Laboratory Tests Test 01/06/21 17:00 01/06/21 20:07 01/07/21 05:55 01/07/21 06:55 Glucose (Fingerstick) 568 mg/dL (70-99) 355 mg/dL (70-99) Sodium Level 139 mmol/L (136-145) Potassium Level 4.2 mmol/L (3.5-5.1) Chloride Level 102 mmol/L (98-107) Carbon Dioxide Level 29 mmol/L (21-32) Anion Gap 8 (6-14) Blood Urea Nitrogen 68 mg/dL (8-26) Creatinine 3.0 mg/dL (0.7-1.3) Estimated GFR (Cockcroft-Gault) 20.7 Glucose Level 256 mg/dL (70-99) Calcium Level 8.5 mg/dL (8.5-10.1) Phosphorus Level 3.3 mg/dL (2.6-4.7) Magnesium Level 2.6 mg/dL (1.8-2.4) White Blood Count 14.0 x10^3/uL (4.0-11.0) Red Blood Count 3.17 x10^6/uL (4.30-5.70) Hemoglobin 9.5 g/dL (13.0-17.5) Hematocrit 28.4 % (39.0-53.0) Mean Corpuscular Volume 90 fL (79-100) Mean Corpuscular Hemoglobin 30 pg (25-35) Mean Corpuscular Hemoglobin Concent 33 g/dL (31-37) Red Cell Distribution Width 15.8 % (11.5-14.5) Platelet Count 478 x10^3/uL (140-400) Neutrophils (%) (Auto) 77 % (31-73) Lymphocytes (%) (Auto) 12 % (24-48) Monocytes (%) (Auto) 8 % (0-9) Eosinophils (%) (Auto) 2 % (0-3) Basophils (%) (Auto) 1 % (0-3) Neutrophils # (Auto) 10.8 x10^3/uL (1.8-7.7) Lymphocytes # (Auto) 1.7 x10^3/uL (1.0-4.8) Monocytes # (Auto) 1.1 x10^3/uL (0.0-1.1) Eosinophils # (Auto) 0.3 x10^3/uL (0.0-0.7) Basophils # (Auto) 0.1 x10^3/uL (0.0-0.2) Test 01/07/21 07:01 01/07/21 11:57 Glucose (Fingerstick) 283 mg/dL (70-99) 173 mg/dL (70-99) Assessment and Plan Assessmemt and Plan Problems Medical Problems: (1) Constipation Status: Acute Comment Review of Relevant I have reviewed the following items ryan (where applicable) has been applied. Medications: Current Medications Medications (Trade) Dose Ordered Sig/Raghu Route PRN Reason Start Time Stop Time Status Last Admin Dose Admin Atorvastatin Calcium (Lipitor) 10 mg HS PO 01/06/21 21:00 01/06/21 21:07 Clonidine HCl (Catapres) 0.3 mg TID PO 01/06/21 14:00 01/07/21 07:56 Insulin Human Lispro (HumaLOG) 0-9 UNITS TIDWMEALS SQ 01/06/21 17:00 01/07/21 12:31 Insulin Human Lispro (HumaLOG) 9 units 1X ONCE SQ 01/06/21 13:30 01/06/21 13:31 DC 01/06/21 13:30 Insulin Glargine (Lantus Syringe) 25 unit QHS SQ 01/06/21 21:00 01/06/21 21:11 Insulin Human Lispro (HumaLOG) 15 units 1X ONCE SQ 01/06/21 17:15 01/06/21 17:16 DC 01/06/21 17:28 Sodium Chloride 1,000 ml @ 100 mls/hr Q10H IV 01/07/21 12:00 01/07/21 12:28 Justifications for Admission Other Justification N/V CALVIN SHERWOOD MD Jan 07, 2021 12:57
[2021-01-07 15:00] VITALS: BP 154/70
[2021-01-07 19:32] VITALS: BP 147/58
[2021-01-07] MEDS: ATORVASTATIN CALCIUM 10 MG TABLET. PO SCH (21:52)
[2021-01-07] MEDS: INSULIN GLARGINE SYRINGE. SQ SCH (21:59)
[2021-01-07 23:13] VITALS: BP 160/63
[2021-01-08 03:28] VITALS: BP 153/70
--- NOTE | 2021-01-08 03:30 | NUR ---
Patient's HR pretty consistently maintaining in the 40's since around midnight, dropping as low as [address] Lagos notified, cardiology consult placed for in the am. Will continue to monitor. Addendum: 01/08/21 at 0339 by RASHEL FREY RN RN When patient asked about symptoms he denies however states his HR always runs low. Patient at this time repositioned, 2L of O2 placed on patient d/t sleep apnea.
[2021-01-08 07:00] VITALS: BP 154/70
[2021-01-08] MEDS ORDERED: PANTOPRAZOLE 40 MG TABLET.DR. PO SCH (07:30)
[2021-01-08 08:30] LABS: CREATININE 2.1 mg/dL (0.7-1.3); GFR 31.2; MAGNESIUM 2.3 mg/dL (1.8-2.4); POTASSIUM 3.8 mmol/L (3.5-5.1)
[2021-01-08 08:36] LABS: BASO % 0 % (0-3); EOS # 0.4 x10^3/uL (0.0-0.7); EOS % 4 % (0-3); HEMATOCRIT 27.4 % (39.0-53.0); HEMOGLOBIN 9.3 g/dL (13.0-17.5); LYMPH # 1.4 x10^3/uL (1.0-4.8); LYMPH % 13 % (24-48); MEAN CORPUSCULAR HEMOGLOBIN 30 pg (25-35); MEAN CORPUSCULAR HGB CONC 34 g/dL (31-37); MEAN CORPUSCULAR VOLUME 89 fL (79-100); MONO # 0.7 x10^3/uL (0.0-1.1); MONO % 6 % (0-9); NEUT # 8.4 x10^3/uL (1.8-7.7); NEUT % 77 % (31-73); PLATELET COUNT 433 x10^3/uL (140-400); RED BLOOD COUNT 3.09 x10^6/uL (4.30-5.70); RED CELL DISTRIBUTION WIDTH 15.8 % (11.5-14.5)
[2021-01-08] MEDS: CARVEDILOL 3.125 MG TABLET. PO SCH ×2 (08:50→13:00)
[2021-01-08] MEDS: buPROPion SR 100 MG TABLET.SA. PO SCH (08:51)
[2021-01-08] MEDS: cloNIDine HCL 0.3 MG TABLET PO SCH ×2 (08:51→14:00)
[2021-01-08] MEDS: INSULIN LISPRO 300 UNITS/3 ML VIAL. SQ SCH ×2 (08:51→13:02)
[2021-01-08] MEDS: IV NORMAL SALINE 1000ML BAG 1,000 ML IV SCH (08:55)
--- NOTE | 2021-01-08 09:44 | DISCH ---
DISCHARGE INSTRUCTIONS Condition on Discharge Condition on Discharge: Stable Activity After Discharge Activity Instructions for Disc: Activity as tolerated Exercise Instruction after Dis: Walk 15 min, 3 x per day Driving Instructions after Dis: Do not drive today Weight Bearing Status after Di: As tolerated Diet after Discharge Diet after Discharge: GI Soft, Diabetic No Calorie Level Diet Texture: Regular Liquid Texture: Thin Liquid Swallowing Supervision: None needed Wound Incision Care Wound/Incision Care: No wound care needed Checks after Discharge Checks after discharge: Check blood sugar, ac/hs Follow-Up Follow up with: PCP within 2 weeks of discharge Treatment/Equipment after DC Adaptive Equipment Issued: None CALVIN SHERWOOD MD Jan 08, 2021 09:44
--- NOTE | 2021-01-08 10:54 | SNU/HH DC ---
DISCHARGE WITH HOME HEALTH DISCHARGE INFORMATION: Discharge Date: Jan 08, 2021 Final Diagnosis: Problems Medical Problems: (1) Constipation Status: Acute Condition on Discharge: Stable CODE STATUS: Code Status: DNR/DNI HOME HEALTH: Face to Face: I certify this patient is under my care and that I, or a nurse practitioner or physician's engineering assistant working with me, had a face to face encounter that meets the physician face to face encounter requirements with this patient on []. Medical Complications: DM, Falls, HTN Halfway For: Admin/Educate Injections, Assess & Educate Safety, Assess/Skilled Observatio, Diabetic Care, Medication Management RN For Eval/Treatment: Yes Physical Therapy For: Evalulation/Treatment Occupational Therapy For: Evaluation/Treatment Home Health Aide For: Self-care Pt Meets Homebound Status: Poor coordination w/ amb., Extreme weakness w/ amb., Fatigue w/ amb., Unable to negotiate home POST DISCHARGE ORDERS: Activity Instructions for Disc: Activity as tolerated Weight Bearing Status after Di: As tolerated DIET AFTER DISCHARGE: Cardiac Wound/Incision Care: No wound care needed CHECKS AFTER DISCHARGE: Checks after discharge: Check blood sugar, ac/hs FOLLOW-UP: Follow up with: PCP within 2 weeks of discharge TREATMENT/EQUIPMENT ORDERS: Adaptive Equipment Issued: None CERTIFICATION STATEMENT: Certification Statement: Certification Statement: Based on the above finding, I certify that this patient is confined to the home and needs intermittent detention care, physical therapy and/or speech therapy, or continues to need occupational therapy.~ This patient is under my care, and I have initiated the establishment of the plan of care.~ This patient will be followed by myself or a community physician who will periodically review the plan of care. Home Meds Reported Medications Insulin Lispro (HUMALOG) 100 Unit/1 Ml Vial, 100 UNIT SQ TIDWMEALS for DIABETES, EACH 06/19/20 Insulin Glargine,Hum.rec.anlog (LANTUS SOLOSTAR) 100 Unit/1 Ml Insuln.pen, 22 UNIT SQ QHS for DIABETES, #15 ML 5 Refills 06/19/20 Doxazosin Mesylate (DOXAZOSIN MESYLATE) 4 Mg Tablet, 4 MG PO BID for HYPERTENSION, TAB 06/19/20 Atorvastatin Calcium (LIPITOR) 10 Mg Tablet, 10 MG PO HS for FOR CHOLESTEROL, #3 0 TAB 0 Refills 1/2 TAB EVERY OTHER DAY 06/19/20 Omeprazole Magnesium (PRILOSEC OTC) 20 Mg Tablet.dr, 20 MG PO DAILY for GERD, TAB 06/19/20 Aspirin (ASPIRIN) 81 Mg Tab.chew, 81 MG PO DAILY for HEART, TAB.CHEW 06/19/20 Amlodipine Besylate (NORVASC) 10 Mg Tablet, 10 MG PO DAILY for HYPERTENSION, TAB 06/19/20 Clonidine Hcl (CLONIDINE HCL) 0.3 Mg Tablet, 0.3 MG PO TID for HYPERTENION, TAB 06/19/20 Carvedilol (COREG) 25 Mg Tablet, 3.125 MG PO TIDWMEALS for CARDIAC, TAB 06/19/20 Zolpidem Tartrate (AMBIEN) 5 Mg Tablet, 2.5 MG PO PRN QHS PRN for INSOMNIA, TAB 0 Refills 06/19/20 Bupropion Hcl (BUPROPION HCL SR) 100 Mg Tablet.er, 100 MG PO DAILY for DEPRESSION, TAB.SR 06/19/20 Lisinopril (LISINOPRIL) 20 Mg Tablet, 20 MG PO BID for FOR HYPERTENSION, #30 TAB 0 Refills 06/19/20 Furosemide (LASIX) 20 Mg Tablet, 60 MG PO DAILY for DIURETIC, TAB 06/19/20 CALVIN SHERWOOD MD Jan 08, 2021 10:54
[2021-01-08 11:00] VITALS: BP 152/66
--- NOTE | 2021-01-08 11:02 | PDOC2 ---
CONSULT Date of Consult Date of Consult DATE: 01/08/21 TIME: 11:02 Reason for Consult Reason for Consult: Near syncope Referring Physician Referring Physician: Dr. Milner Identification/Chief Complaint Chief Complaint Constipation, vomiting and near syncope Source Source: Chart review, Patient History of Present Illness Reason for Visit: 70-year-old male without any previous cardiac history presented to ED with constipation and vomiting. Prior to presentation, patient apparently had a near syncopal episode when he slid out of his wheelchair. He denied any loss of consciousness as such. He also denied any chest pain, orthopnea/PND or palpitations. He denied any syncope or near syncope in the past. Past Medical History Past Medical History Hypertension Diabetes mellitus type 2 Depression Past Surgical History Past Surgical History: No pertinent history Family History Family History Not contributory Family History: Hypertension Social History Quit ALCOHOL: occassional (wine) Drugs: None Current Problem List Problem List Problems Medical Problems: (1) Constipation Status: Acute Current Medications Current Medications Current Medications Sodium Chloride 1,000 ml @ 1,000 mls/hr 1X ONCE IV Last administered on 01/05/21at 18:33; Start 01/05/21 at 17:00; Stop 01/05/21 at 17:59; Status DC Ondansetron HCl (Zofran) 4 mg 1X ONCE IVP Last administered on 01/05/21at 18:32; Start 01/05/21 at 17:00; Stop 01/05/21 at 17:01; Status DC Ondansetron HCl (Zofran) 4 mg PRN Q8HRS PRN IVP NAUSEA/VOMITING Last administered on 01/06/21at 05:30; Start 01/05/21 at 20:15; Stop 01/06/21 at 09:32; Status DC Acetaminophen (Tylenol) 650 mg PRN Q4HRS PRN PO FEVER > 100.3'F; Start 01/05/21 at 20:15; Stop 01/06/21 at 20:14; Status Cancel Nitroglycerin (Nitrostat) 0.4 mg PRN Q5MIN PRN SL CHEST PAIN; Start 01/05/21 at 20:15; Stop 01/06/21 at 20:14; Status DC Sodium Chloride 1,000 ml @ 125 mls/hr 1X ONCE IV Last administered on 01/06/21at 09:25; Start 01/06/21 at 08:15; Stop 01/06/21 at 16:14; Status DC Sennosides (Senna) 17.2 mg PRN BID PRN PO CONSTIPATION; Start 01/06/21 at 08:15 Docusate Sodium (Colace) 100 mg PRN DAILY PRN PO HARD STOOLS; Start 01/06/21 at 08:15 Ondansetron HCl (Zofran) 4 mg PRN Q6HRS PRN IVP NAUSEA/VOMITING Last administer ed on 01/06/21at 17:22; Start 01/06/21 at 08:15 Dextrose (Dextrose 50%-Water Syringe) 12.5 gm PRN Q15MIN PRN IV SEE COMMENTS; Start 01/06/21 at 08:15; Stop 01/06/21 at 09:32; Status DC Acetaminophen (Tylenol) 650 mg PRN Q4HRS PRN PO TEMP OVER 100.4F OR MILD PAIN Last administered on 01/06/21at 21:03; Start 01/06/21 at 08:15 Lorazepam (Ativan) 0.5 mg PRN Q6HRS PRN PO ANXIETY / AGITATION; Start 01/06/21 at 08:15 Lorazepam (Ativan Inj) 0.25 mg PRN Q4HRS PRN IV ANXIETY / AGITATION Last administered on 01/06/21at 14:03; Start 01/06/21 at 08:15 Enoxaparin Sodium (Lovenox 30mg Syringe) 30 mg DAILY SQ Last administered on 01/06/21at 09:24; Start 01/06/21 at 09:00; Stop 01/06/21 at 11:44; Status DC Pantoprazole Sodium (PROTONIX VIAL for IV PUSH) 40 mg DAILYAC IVP Last administered on 01/07/21at 07:56; Start 01/06/21 at 11:30; Stop 01/07/21 at 12:03; Status DC Prochlorperazine Edisylate (Compazine) 10 mg PRN Q6HRS PRN IV NAUSEA/VOMITING- 2ND CHOICE Last administered on 01/06/21at 14:03; Start 01/06/21 at 08:15 Zolpidem Tartrate (Ambien) 2.5 mg PRN QHS PRN PO INSOMNIA; Start 01/06/21 at 08:15 Atorvastatin Calcium (Lipitor) 10 mg HS PO Last administered on 01/07/21at 21:52; Start 01/06/21 at 21:00 Bupropion HCl (Wellbutrin Sr) 100 mg DAILY PO Last administered on 01/08/21at 08:51; Start 01/06/21 at 12:00 Clonidine HCl (Catapres) 0.3 mg TID PO Last administered on 01/08/21at 08:51; Start 01/06/21 at 14:00 Zolpidem Tartrate (Ambien) 2.5 mg PRN QHS PRN PO INSOMNIA; Start 01/06/21 at 09:30; Status Cancel Carvedilol (Coreg) 3.125 mg TIDWMEALS PO Last administered on 01/08/21at 08:50; Start 01/06/21 at 12:00 Insulin Glargine (Lantus Syringe) 22 unit QHS SQ ; Start 01/06/21 at 21:00; Stop 01/06/21 at 17:06; Status DC Insulin Human Lispro (HumaLOG) 0-7 UNITS TIDWMEALS SQ ; Start 01/06/21 at 12:00; Stop 01/06/21 at 12:25; Status DC Dextrose (Dextrose 50%-Water Syringe) 12.5 gm PRN Q15MIN PRN IV SEE COMMENTS; Start 01/06/21 at 09:30 Insulin Human Lispro (HumaLOG) 0-9 UNITS TIDWMEALS SQ Last administered on 01/08/21at 08:51; Start 01/06/21 at 17:00 Insulin Human Lispro (HumaLOG) 9 units 1X ONCE SQ Last administered on 01/06/21at 13:30; Start 01/06/21 at 13:30; Stop 01/06/21 at 13:31; Status DC Insulin Glargine (Lantus Syringe) 25 unit QHS SQ Last administered on 01/07/21at 21:59; Start 01/06/21 at 21:00 Insulin Human Lispro (HumaLOG) 15 units 1X ONCE SQ Last administered on 01/06/21at 17:28; Start 01/06/21 at 17:15; Stop 01/06/21 at 17:16; Status DC Sodium Chloride 1,000 ml @ 100 mls/hr Q10H IV Last administered on 01/08/21at 08:55; Start 01/07/21 at 12:00 Pantoprazole Sodium (Protonix) 40 mg DAILYAC PO Last administered on 01/08/21at 08:49; Start 01/08/21 at 07:30 Active Scripts Active Reported Humalog (Insulin Lispro) 100 Unit/1 Ml Vial 100 Unit SQ TIDWMEALS Lantus Solostar (Insulin Glargine,Hum.rec.anlog) 100 Unit/1 Ml Insuln.pen 22 Unit SQ QHS Doxazosin Mesylate 4 Mg Tablet 4 Mg PO BID Lipitor (Atorvastatin Calcium) 10 Mg Tablet 10 Mg PO HS 1/2 TAB EVERY OTHER DAY Prilosec Otc (Omeprazole Magnesium) 20 Mg Tablet.dr 20 Mg PO DAILY Aspirin 81 Mg Tab.chew 81 Mg PO DAILY Norvasc (Amlodipine Besylate) 10 Mg Tablet 10 Mg PO DAILY Clonidine Hcl 0.3 Mg Tablet 0.3 Mg PO TID Coreg (Carvedilol) 25 Mg Tablet 3.125 Mg PO TIDWMEALS Ambien (Zolpidem Tartrate) 5 Mg Tablet 2.5 Mg PO PRN QHS PRN Bupropion Hcl Sr (Bupropion Hcl) 100 Mg Tablet.er 100 Mg PO DAILY Lisinopril 20 Mg Tablet 20 Mg PO BID Lasix (Furosemide) 20 Mg Tablet 60 Mg PO DAILY Allergies Allergies: Coded Allergies: morphine (Verified Allergy, Intermediate, 06/19/20) quinine (Verified Allergy, Intermediate, 01/05/21) ROS PSYCHOLOGICAL ROS: No: Hallucinations Eyes: No Loss of vision HEENT: No: Epistaxis Respiratory: No: Hemoptysis Cardiovascular: No Chest Pain Gastrointestinal: Yes Nausea, Yes Vomiting, Yes Constipation Neurological: No Seizures Skin: No Rash Physical Exam General: Alert, Oriented X3 HEENT: Atraumatic Lungs: Clear to auscultation Heart: Regular rate Abdomen: Soft Extremities: No edema Neuro: Normal speech Psych/Mental Status: Mood NL Vitals VITALS Vital Signs Date Time Temp Pulse Resp B/P (MAP) Pulse Ox O2 Delivery O2 Flow Rate FiO2 01/08/21 08:51 64 154/70 01/08/21 07:00 97.7 97 Room Air 2.0 97.7 01/08/21 03:28 18 Labs Labs Laboratory Tests Test 01/06/21 11:47 10/7/21 17:00 01/06/21 20:07 01/07/21 05:55 Glucose (Fingerstick) 488 mg/dL (70-99) 568 mg/dL (70-99) 355 mg/dL (70-99) Sodium Level 139 mmol/L (136-145) Potassium Level 4.2 mmol/L (3.5-5.1) Chloride Level 102 mmol/L (98-107) Carbon Dioxide Level 29 mmol/L (21-32) Anion Gap 8 (6-14) Blood Urea Nitrogen 68 mg/dL (8-26) Creatinine 3.0 mg/dL (0.7-1.3) Estimated GFR (Cockcroft-Gault) 20.7 Glucose Level 256 mg/dL (70-99) Calcium Level 8.5 mg/dL (8.5-10.1) Phosphorus Level 3.3 mg/dL (2.6-4.7) Magnesium Level 2.6 mg/dL (1.8-2.4) Test 01/07/21 06:55 01/07/21 07:01 01/07/21 11:57 01/07/21 16:52 White Blood Count 14.0 x10^3/uL (4.0-11.0) Red Blood Count 3.17 x10^6/uL (4.30-5.70) Hemoglobin 9.5 g/dL (13.0-17.5) Hematocrit 28.4 % (39.0-53.0) Mean Corpuscular Volume 90 fL (79-100) Mean Corpuscular Hemoglobin 30 pg (25-35) Mean Corpuscular Hemoglobin Concent 33 g/dL (31-37) Red Cell Distribution Width 15.8 % (11.5-14.5) Platelet Count 478 x10^3/uL (140-400) Neutrophils (%) (Auto) 77 % (31-73) Lymphocytes (%) (Auto) 12 % (24-48) Monocytes (%) (Auto) 8 % (0-9) Eosinophils (%) (Auto) 2 % (0-3) Basophils (%) (Auto) 1 % (0-3) Neutrophils # (Auto) 10.8 x10^3/uL (1.8-7.7) Lymphocytes # (Auto) 1.7 x10^3/uL (1.0-4.8) Monocytes # (Auto) 1.1 x10^3/uL (0.0-1.1) Eosinophils # (Auto) 0.3 x10^3/uL (0.0-0.7) Basophils # (Auto) 0.1 x10^3/uL (0.0-0.2) Glucose (Fingerstick) 283 mg/dL (70-99) 173 mg/dL (70-99) 166 mg/dL (70-99) Test 01/07/21 20:32 01/08/21 05:50 01/08/21 07:32 01/08/21 08:45 Glucose (Fingerstick) 278 mg/dL (70-99) 189 mg/dL (70-99) 210 mg/dL (70-99) White Blood Count 11.0 x10^3/uL (4.0-11.0) Red Blood Count 3.09 x10^6/uL (4.30-5.70) Hemoglobin 9.3 g/dL (13.0-17.5) Hematocrit 27.4 % (39.0-53.0) Mean Corpuscular Volume 89 fL (79-100) Mean Corpuscular Hemoglobin 30 pg (25-35) Mean Corpuscular Hemoglobin Concent 34 g/dL (31-37) Red Cell Distribution Width 15.8 % (11.5-14.5) Platelet Count 433 x10^3/uL (140-400) Neutrophils (%) (Auto) 77 % (31-73) Lymphocytes (%) (Auto) 13 % (24-48) Monocytes (%) (Auto) 6 % (0-9) Eosinophils (%) (Auto) 4 % (0-3) Basophils (%) (Auto) 0 % (0-3) Neutrophils # (Auto) 8.4 x10^3/uL (1.8-7.7) Lymphocytes # (Auto) 1.4 x10^3/uL (1.0-4.8) Monocytes # (Auto) 0.7 x10^3/uL (0.0-1.1) Eosinophils # (Auto) 0.4 x10^3/uL (0.0-0.7) Basophils # (Auto) 0.0 x10^3/uL (0.0-0.2) Sodium Level 139 mmol/L (136-145) Potassium Level 3.8 mmol/L (3.5-5.1) Chloride Level 105 mmol/L (98-107) Carbon Dioxide Level 26 mmol/L (21-32) Anion Gap 8 (6-14) Blood Urea Nitrogen 49 mg/dL (8-26) Creatinine 2.1 mg/dL (0.7-1.3) Estimated GFR (Cockcroft-Gault) 31.2 Glucose Level 175 mg/dL (70-99) Calcium Level 8.0 mg/dL (8.5-10.1) Magnesium Level 2.3 mg/dL (1.8-2.4) Laboratory Tests Test 01/07/21 11:57 01/07/21 16:52 01/07/21 20:32 01/08/21 05:50 Glucose (Fingerstick) 173 mg/dL (70-99) 166 mg/dL (70-99) 278 mg/dL (70-99) White Blood Count 11.0 x10^3/uL (4.0-11.0) Red Blood Count 3.09 x10^6/uL (4.30-5.70) Hemoglobin 9.3 g/dL (13.0-17.5) Hematocrit 27.4 % (39.0-53.0) Mean Corpuscular Volume 89 fL (79-100) Mean Corpuscular Hemoglobin 30 pg (25-35) Mean Corpuscular Hemoglobin Concent 34 g/dL (31-37) Red Cell Distribution Width 15.8 % (11.5-14.5) Platelet Count 433 x10^3/uL (140-400) Neutrophils (%) (Auto) 77 % (31-73) Lymphocytes (%) (Auto) 13 % (24-48) Monocytes (%) (Auto) 6 % (0-9) Eosinophils (%) (Auto) 4 % (0-3) Basophils (%) (Auto) 0 % (0-3) Neutrophils # (Auto) 8.4 x10^3/uL (1.8-7.7) Lymphocytes # (Auto) 1.4 x10^3/uL (1.0-4.8) Monocytes # (Auto) 0.7 x10^3/uL (0.0-1.1) Eosinophils # (Auto) 0.4 x10^3/uL (0.0-0.7) Basophils # (Auto) 0.0 x10^3/uL (0.0-0.2) Sodium Level 139 mmol/L (136-145) Potassium Level 3.8 mmol/L (3.5-5.1) Chloride Level 105 mmol/L (98-107) Carbon Dioxide Level 26 mmol/L (21-32) Anion Gap 8 (6-14) Blood Urea Nitrogen 49 mg/dL (8-26) Creatinine 2.1 mg/dL (0.7-1.3) Estimated GFR (Cockcroft-Gault) 31.2 Glucose Level 175 mg/dL (70-99) Calcium Level 8.0 mg/dL (8.5-10.1) Magnesium Level 2.3 mg/dL (1.8-2.4) Test 01/08/21 07:32 01/08/21 08:45 Glucose (Fingerstick) 189 mg/dL (70-99) 210 mg/dL (70-99) Assessment/Plan Assessment/Plan 1. Near syncope, most probably vasovagal. EKG showed sinus rhythm. Telemetry did not show any significant arrhythmias. We will consider event monitor recording as an outpatient. 2. Hypertension: Controlled 3. Diabetes mellitus type 2: Treat per IM 4. Nausea, vomiting and constipation. Treat per GI team. 5. Acute on chronic renal insufficiency due to vasomotor nephropathy. Continue to venous hydration. 6. History of normal pressure hydrocephalus. Thank you for your consultation KATIE GALVIN MD Jan 08, 2021 11:02
--- NOTE | 2021-01-08 13:40 | NUR ---
DISCHARGE INSTRUCTIONS GIVEN, QUESTIONS AND CONCERNS ANSWERED, PATIENT AND HIS DAUGHTER AT THE BEDSIDE VERBALIZED UNDERSTANDING OF DISCHARGE INFORMATION INCLUDING TAKING ALL MEDICATIONS INSTRUCTED AND FOLLOWING UP WITH HIS PRIMARY PROVIDER AND OTHER CONSULTS INSTRUCTED.
[2021-01-08 14:00] VITALS: BP 152/66
--- NOTE | 2021-01-08 14:04 | NUR ---
PATIENT LEAVES THE UNIT PER W/C AND ACCOMPANIED BY THIS BAR TENDER AND HIS DAUGHTER, EMOTIONAL SUPPORT GIVEN, FOLLOW UP APPOINTMENTS ENCOURAGED.
--- NOTE | 2021-01-11 20:52 | PDOC3 ---
[facility]-Discharge Summary Date of Admission: Date of Admission: Jan 05, 2021 Date of Discharge: Date of Discharge: Jan 08, 2021 Discharge Diagnosis: Discharge Diagnosis: Near syncope secondary to constipation Intractable nausea vomiting, possible gastroenteritis Generalized weakness possibly secondary to constipation Constipation Acute on chronic kidney injury due to vasomotor nephropathy, will continue to trend creatinine elevated to 3.0 today History of diabetes mellitus type 2, hemoglobin A1c of 7.5 History of hypertension History of normal pressure hydrocephalus Consults: Consults: Cardiology recs: Assessment/Plan 1. Near syncope, most probably vasovagal. EKG showed sinus rhythm. Telemetry did not show any significant arrhythmias. We will consider event monitor recording as an outpatient. 2. Hypertension: Controlled 3. Diabetes mellitus type 2: Treat per IM 4. Nausea, vomiting and constipation. Treat per GI team. 5. Acute on chronic renal insufficiency due to vasomotor nephropathy. Continue to venous hydration. 6. History of normal pressure hydrocephalus. Hospital Course: Hospital Course: 70-year-old male with past medical history of diabetes mellitus type 2, hypertension, depression, normal pressure hydrocephalus who presents to the ED from home after he had vomiting episodes and feeling constipation. Patient told his home health nurse that he just did not feel right and he was constipated for the last 3 days. Patient did complain of small amount of blood with his bowel movement that was 3 days ago. EMS arrived and reported sugars in the 200s. Patient had near syncopal episode where he did slide out of his wheelchair. No loss of consciousness or trauma to the head. Patient had multiple episodes of nausea vomiting at home and also in the ED and also when he was transferred up to the floor. Patient arrived to the ED and had large bowel movements x2. Both of them were nonbloody. Denies fevers, chest pain, abdominal pain, dysuria, hematuria. Nurse reported coffee-ground emesis. 01/07/2021 No acute events overnight. Patient seen and examined bedside. No reported episodes of coffee-ground emesis or diarrhea or constipation. Patient wants to eat. We will continue with IV fluids due to elevating creatinine. We will continue to trend and anticipate discharge tomorrow if creatinine trending downw ards or remained stable. Patient's chart, labs, images were reviewed and discussed with RN By day Disposition: Disposition/Orders: D/C to Home Activity: Activity: Resume previous activity Diet: Diet: Cardiac Medications: Home Meds Reported Medications Insulin Lispro (HUMALOG) 100 Unit/1 Ml Vial, 100 UNIT SQ TIDWMEALS for DIABETES, EACH 06/19/20 Insulin Glargine,Hum.rec.anlog (LANTUS SOLOSTAR) 100 Unit/1 Ml Insuln.pen, 22 UNIT SQ QHS for DIABETES, #15 ML 5 Refills 06/19/20 Doxazosin Mesylate (DOXAZOSIN MESYLATE) 4 Mg Tablet, 4 MG PO BID for HYPERTENSION, TAB 06/19/20 Atorvastatin Calcium (LIPITOR) 10 Mg Tablet, 10 MG PO HS for FOR CHOLESTEROL, #30 TAB 0 Refills 1/2 TAB EVERY OTHER DAY 06/19/20 Omeprazole Magnesium (PRILOSEC OTC) 20 Mg Tablet.dr, 20 MG PO DAILY for GERD, TAB 06/19/20 Aspirin (ASPIRIN) 81 Mg Tab.chew, 81 MG PO DAILY for HEART, TAB.CHEW 06/19/20 Amlodipine Besylate (NORVASC) 10 Mg Tablet, 10 MG PO DAILY for HYPERTENSION, TAB 06/19/20 Clonidine Hcl (CLONIDINE HCL) 0.3 Mg Tablet, 0.3 MG PO TID for HYPERTENION, TAB 06/19/20 Carvedilol (COREG) 25 Mg Tablet, 3.125 MG PO TIDWMEALS for CARDIAC, TAB 06/19/20 Zolpidem Tartrate (AMBIEN) 5 Mg Tablet, 2.5 MG PO PRN QHS PRN for INSOMNIA, TAB 0 Refills 06/19/20 Bupropion Hcl (BUPROPION HCL SR) 100 Mg Tablet.er, 100 MG PO DAILY for DEPRESSION, TAB.SR 06/19/20 Lisinopril (LISINOPRIL) 20 Mg Tablet, 20 MG PO BID for FOR HYPERTENSION, #30 TAB 0 Refills 06/19/20 Furosemide (LASIX) 20 Mg Tablet, 60 MG PO DAILY for DIURETIC, TAB 06/19/20 Scheduled Amlodipine Besylate (Norvasc), 10 MG PO DAILY, (Reported) Aspirin (Aspirin), 81 MG PO DAILY, (Reported) Atorvastatin Calcium (Lipitor), 10 MG PO HS, (Reported) Bupropion Hcl (Bupropion Hcl Sr), 100 MG PO DAILY, (Reported) Carvedilol (Coreg), 3.125 MG PO TIDWMEALS, (Reported) Clonidine Hcl (Clonidine Hcl), 0.3 MG PO TID, (Reported) Doxazosin Mesylate (Doxazosin Mesylate), 4 MG PO BID, (Reported) Furosemide (Lasix), 60 MG PO DAILY, (Reported) Insulin Glargine,Hum.rec.anlog (Lantus Solostar), 22 UNIT SQ QHS, (Reported) Insulin Lispro (Humalog), 100 UNIT SQ TIDWMEALS, (Reported) Lisinopril (Lisinopril), 20 MG PO BID, (Reported) Omeprazole Magnesium (Prilosec Otc), 20 MG PO DAILY, (Reported) Scheduled PRN Zolpidem Tartrate (Ambien), 2.5 MG PO PRN QHS PRN for INSOMNIA, (Reported) Total Time: Total Time: Total time spent was 32 minutes in preparing scripts and discharge planning with SW and RN Patient seen and examined on day of Discharge. Justicifation of Admission Dx: Justifications for Admission: Justification of Admission Dx: Yes Hypertension: Cres[place] Worsening of Sym CALVIN SHERWOOD MD Jan 11, 2021 20:52
== END 2021-01-08 14:04 | disposition home health service (06) | DRG 391 ==
LOC: ER 16:41 → 5 NORTH 20:03 → OBSVTOIN 20:03
PROVIDERS: ADMIT Internal Medicine; ATTEND Internal Medicine
DX: K59.00 Constipation, unspecified (principal); N17.0 Acute kidney failure with tubular necrosis; G91.2 (Idiopathic) normal pressure hydrocephalus; R47.01 Aphasia; N13.30 Unspecified hydronephrosis; C44.90 Unspecified malignant neoplasm of skin, unspecified; D64.9 Anemia, unspecified; D72.829 Elevated white blood cell count, unspecified; E11.22 Type 2 diabetes mellitus with diabetic chronic kidney disease; E11.65 Type 2 diabetes mellitus with hyperglycemia; F32.A Depression, unspecified; I12.9 Hypertensive chronic kidney disease with stage 1 through stage 4 chronic kidney disease, or unspecified chronic kidney disease; K40.90 Unilateral inguinal hernia, without obstruction or gangrene, not specified as recurrent; M25.78 Osteophyte, vertebrae; M43.16 Spondylolisthesis, lumbar region; M48.00 Spinal stenosis, site unspecified; N18.9 Chronic kidney disease, unspecified; Q63.1 Lobulated, fused and horseshoe kidney; Z23 Encounter for immunization; Z66 Do not resuscitate; Z79.82 Long term (current) use of aspirin; Z82.49 Family history of ischemic heart disease and other diseases of the circulatory system; Z87.891 Personal history of nicotine dependence; K21.9 Gastro-esophageal reflux disease without esophagitis; K52.9 Noninfective gastroenteritis and colitis, unspecified
CPT/HCPCS: 36415; 70450; 71045; 72125; 74176; 80048; 80053; 82550; 82962; 83540; 83550; 83690; 83735; 84100; 84484; 85007; 85025; 93005; 96361; 96374; C9113; J0780; J1650; J1815; J2060; J2405; J7030; 97110-GP; 97530-GP; 99285-25; G0378

== ENCOUNTER 2021-03-15 02:29 | Emergency (ER) | payer MEDICARE ==
[~2021-03-15] VITALS: Ht 182.9 cm; Wt 88.6 kg
--- NOTE | 2021-03-15 04:32 | PHYS DOC ---
Past Medical History Past Surgical History: Tonsillectomy (JANA VALLEJO DO) Smoking Status: Former Smoker Alcohol Use: Occasionally (JANA VALLEJO DO) General Adult EDM: Chief Complaint: WEAKNESS/GENERALIZED HPI: HPI: This is a 70-year-old male brought in by his caregiver for generalized weakness. Weakness is progressive the last few days. No reported fall or trauma. The patient is mostly wheelchair-bound, and has been so for the past few years. He does occasionally ambulate minimally with a walker, is able to pivot with his walker. He has not been able to do this as briskly in the last few days. He was seen yesterday at [facility], and he reports that nothing was done. He reportedly had some confusion which was attributed to hypoglycemia. The patient admits to having chronically poorly controlled diabetes mellitus. He denies chest pain, palpitation, dyspnea, abdominal pain, nausea, vomiting, diarrhea. He denies urinary symptoms. He is caregiver would like his urine checked to see if he has a urinary tract infection. He denies headache or dizziness. He denies vision loss. He has chronic peripheral neuropathy and lower extremity tingling, which is unchanged from baseline. (JANA VALLEJO DO) Review of Systems: Review of Systems: Constitutional: Denies fever or chills. [] Eyes: Denies change in visual acuity. [] HENT: Denies nasal congestion or sore throat. [] Respiratory: Denies dyspnea, cough, hemoptysis. Cardiovascular: Denies chest pain. Chronic bilateral lower extremity swelling, unchanged. GI: Denies abdominal pain, nausea, vomiting or diarrhea. Musculoskeletal: Denies back pain or joint pain. [] Integument: Denies acute skin changes, chronic dryness. Neurologic: Denies headache, or dizziness. Acute on chronic generalized weakness. Chronic tingling and peripheral neuropathy symptoms, unchanged from baseline. Psychiatric: Denies depression or anxiety. [] (JANA VALLEJO DO) Heart Score: C/O Chest Pain: No Risk Factors: Risk Factors: DM, Current or recent (<one month) smoker, HTN, HLP, family history of CAD, obesity. Risk Scores: Score 0 - 3: 2.5% MACE over next 6 weeks - Discharge Home Score 4 - 6: 20.3% MACE over next 6 weeks - Admit for Clinical Observation Score 7 - 10: 72.7% MACE over next 6 weeks - Early Invasive Strategies (JANA VALLEJO DO) Allergies: Allergies: Allergies Coded Allergies Type Severity Reaction Last Updated Verified morphine Allergy Intermediate 06/19/20 Yes quinine Allergy Intermediate 01/05/21 Yes (JANA VALLEJO DO) Physical Exam: PE: Constitutional: Well developed, well nourished, no acute distress, non-toxic appearance. [] HENT: Normocephalic, atraumatic Eyes: Conjunctiva normal, no discharge. Sclera are clear and anicteric. PERRL, EOMI. Neck: Normal range of motion, no tenderness, supple, no stridor. Trachea midl ine. No JVD. Cardiovascular:Heart rate regular rhythm, well-perfused appearing, +2 radial pulses and +2 dorsalis pedis pulses bilaterally Lungs & Thorax: No respiratory distress. No tachypnea. No rales, rhonchi or wheezes. Speaks in full and clear sentences Abdomen: Abdomen soft, nondistended, nontender to palpation Skin: Warm, dry, intact. No open wounds. No jaundice. Back: No deformity or tenderness of his spine. Extremities: No deformity noted. There is bilateral, symmetric lower extremity edema. No calf tenderness. Neurologic: He is awake, alert, oriented x3, cranial nerves II through XII grossly intact. He has symmetric diffuse upper and lower extremity motor weakness. Sensation is grossly intact. Speech is clear and fluent. Psychologic: Affect normal, judgement normal, mood normal. [] (JANA VALLEJO DO) Current Patient Data: Vital Signs: Vital Signs Date Time Temp Pulse Resp B/P (MAP) Pulse Ox O2 Delivery O2 Flow Rate FiO2 03/15/21 03:32 98.1 94 20 167/84 (111) 97 Room Air 98.1 (JANA VALLEJO DO) EKG: EKG: EKG is interpreted at 0503 Rhythm is sinus Rate is 81 bpm [place] is left No STEMI (JANA VALLEJO DO) Radiology/Procedures: Radiology/Procedures: IMAGING REPORT Signed PATIENT: YO MARKS ACCOUNT: [id number] : 1950 LOCATION: ER AGE: 70 SEX: M EXAM STATUS: REG ER ORD. PHYSICIAN: JANA VALLEJO DO REASON: weakness PROCEDURE: CT HEAD WO CONTRAST CT HEAD/BRAIN WO Date: 03/15/2021 5:05 AM Clinical Indication: Reason: weakness / Spl. Instructions: / History: Comparison: CT 03/14/2021. MRI 06/19/2020. Technique: 5 mm axial tomographic images were obtained of the head without contrast. These were viewed on brain and bone windows. One or more of the following dose reduction techniques were utilized: Automated exposure control (AEC), Adjustment of mA and/or kV according to patient size, Use of iterative reconstruction technique such as ASiR, CT scan done according to ALARA and image gently/image wisely Findings: General cerebral and cerebellar volume loss. Mild nonspecific periventricular hypoattenuation, most commonly seen with chronic small vessel ischemic disease. Calcified atherosclerosis of the bilateral cavernous and paraclinoid internal carotid arteries and intracranial vertebral arteries. Bilateral cerebellar chronic lacunar infarcts No intra- or extra-axial mass or fluid collection. No acute hemorrhage. Dilation of the ventricles, out of proportion to the degree of cerebral volume loss. The marks-white matter junction is normal. The subarachnoid cisterns are patent. The visualized paranasal sinuses are normal. The visualized portions of the orbits and globes are normal. The mastoid air cells are clear. The registration clerk topogram shows no lytic lesion or fracture. Impression: 1. No acute intracranial process. Redemonstration of ventriculomegaly which is out of proportion to the degree of cerebral volume loss, which can be seen with normal pressure hydrocephalus. 3. Moderate chronic small vessel ischemic disease. Electronically signed by: Luciano Hernandez MD (03/15/2021 5:27 AM) [facility] DICTATED and SIGNED BY: LUCIANO HERNANDEZ MD DATE: 03/15/21 [id number] (JANA VALLEJO DO) Course & Med Decision Making: Course & Med Decision Making Pertinent Labs and Imaging studies reviewed. (See chart for details) The patient's laboratory exams are unremarkable. CT findings are stable. He did not provide a urine sample for several hours. He is resting comfortably, continues to have no subjective physical pain complaints. Vital signs are all stable, blood pressure is markedly improved, without specific intervention or treatment. Creatinine is improved from baseline today. Urinalysis is ordered and is pending, has been on lab for quite some time. The patient denies urinary symptoms. I am transferring care to Dr. Mathis to follow- up on the UA results. The patient is comfortable with the plan for discharge home, he has plenty of caregivers to help him. (JANA VALLEJO DO) Course & Med Decision Making I assumed care of patient at tail end of off going physician shift. I reviewed entirety of ER work-up and pending urine that was ultimately negative prior to departure. Packet, plan of care and return precautions discussed between patient and previous provider prior to discharge (JARRET MATHIS DO) Dragon Disclaimer: Dragon Disclaimer: This electronic medical record was generated, in whole or in part, using a voice recognition dictation system. (JANA VALLEJO DO) Departure Departure Impression: Primary Impression: Generalized weakness Additional Impression: Hyperglycemia due to diabetes mellitus Disposition: HOME / SELF CARE / HOMELESS Condition: STABLE Referrals: MARLENY SABILLON (PCP) Patient Instructions: Weakness Additional Instructions: Return to the ER for chest pain, shortness of breath, vomiting, if you are acutely injured, if you have a fall, temperature 100.4 or higher or for any other concerns. Continue taking your prescribed medications as directed by your primary care doctor. Adhere to an ADA diet. Please contact your primary care physician for further evaluation and treatment. JANA VALLEJO DO Mar 15, 2021 04:32 JARRET MATHIS DO Mar 15, 2021 10:51
--- NOTE | 2021-03-15 05:30 | RAD ---
CT HEAD/BRAIN WO Date: 03/15/2021 5:05 AM Clinical Indication: Reason: weakness / Spl. Instructions: / History: Comparison: CT 03/14/2021. MRI 06/19/2020. Technique: 5 mm axial tomographic images were obtained of the head without contrast. These were view ed on brain and bone windows. One or more of the following dose reduction techniques were utilized: A utomated exposure control (AEC), Adjustment of mA and/or kV according to patient size, Use of iterati ve reconstruction technique such as ASiR, CT scan done according to ALARA and image gently/image gauthier ly Findings: General cerebral and cerebellar volume loss. Mild nonspecific periventricular hypoattenuation, most c ommonly seen with chronic small vessel ischemic disease. Calcified atherosclerosis of the bilateral c avernous and paraclinoid internal carotid arteries and intracranial vertebral arteries. Bilateral cerebellar chronic lacunar infarcts No intra- or extra-axial mass or fluid collection. No acute hemorrhage. Dilation of the ventricles, o ut of proportion to the degree of cerebral volume loss. The jose-white matter junction is normal. The subarachnoid cisterns are patent. The visualized paranasal sinuses are normal. The visualized portions of the orbits and globes are no rmal. The mastoid air cells are clear. The rotoformer backtender topogram shows no lytic lesion or fracture. Impression: 1. No acute intracranial process. Redemonstration of ventriculomegaly which is out of proportion to the degree of cerebral volume loss, which can be seen with normal pressure hydrocephalus. 3. Moderate chronic small vessel ischemic disease. Electronically signed by: Justus Hernandez MD (03/15/2021 5:27 AM) [facility]
[2021-03-15 06:06] LABS: BASO # 0.1 x10^3/uL (0.0-0.2); BASO % 1 % (0-3); EOS # 0.1 x10^3/uL (0.0-0.7); EOS % 1 % (0-3); HEMATOCRIT 26.5 % (39.0-53.0); HEMOGLOBIN 9.3 g/dL (13.0-17.5); LYMPH # 1.4 x10^3/uL (1.0-4.8); LYMPH % 14 % (24-48); MEAN CORPUSCULAR HEMOGLOBIN 31 pg (25-35); MEAN CORPUSCULAR HGB CONC 35 g/dL (31-37); MEAN CORPUSCULAR VOLUME 89 fL (79-100); MONO # 0.7 x10^3/uL (0.0-1.1); MONO % 7 % (0-9); NEUT # 8.1 x10^3/uL (1.8-7.7); NEUT % 78 % (31-73); PLATELET COUNT 390 x10^3/uL (140-400); RED BLOOD COUNT 2.98 x10^6/uL (4.30-5.70); RED CELL DISTRIBUTION WIDTH 14.6 % (11.5-14.5); WHITE BLOOD COUNT 10.4 x10^3/uL (4.0-11.0)
[2021-03-15 06:11] LABS: CALCIUM 8.3 mg/dL (8.5-10.1); CREATININE 1.9 mg/dL (0.7-1.3); POTASSIUM 3.8 mmol/L (3.5-5.1)
[2021-03-15 06:17] LABS: MAGNESIUM 2.5 mg/dL (1.8-2.4); PHOSPHORUS 3.6 mg/dL (2.6-4.7)
--- NOTE | 2021-03-15 06:29 | EKG ---
[facility] [address] [place] [address] Test Date: 2021-03-15 Test Time: 04:59:52 Pat Name: YO MARKS Department: Room: Gender: M Site Monitor: : 1950 Requested By: JANA VALLEJO Order Number: [id number] Reading MD: Measurements Intervals [place] Rate: 81 P: 50 AL: 164 QRS: -54 QRSD: 150 T: 92 QT: 434 QTc: 511 Interpretive Statements SINUS RHYTHM ABNORMAL LEFT AXIS DEVIATION LEFT ANTERIOR FASCICULAR BLOCK RIGHT BUNDLE BRANCH BLOCK BIFASCICULAR BLOCK ABNORMAL ECG RI6.02 No previous ECG available for comparison
[2021-03-15 07:45] LABS: BILIRUBIN,URINE NEGATIVE (NEG); CLARITY,URINE CLEAR; COLOR,URINE YELLOW; NITRITE,URINE NEGATIVE (NEG); PH,URINE 6.5 (<5.0-8.0); PROTEIN,URINE 100 mg/dL (NEG-TRACE); UROBILINOGEN,URINE 0.2 mg/dL (0.2 mg/dL)
[2021-03-15 08:00] VITALS: BP 189/86
[2021-03-15 08:39] LABS: BACTERIA,URINE 0 /HPF (0-FEW); RBC,URINE 0 /HPF (0-2); WBC,URINE 0 /HPF (0-4)
== END 2021-03-15 08:55 | disposition home or self-care (01) ==
LOC: ER 02:29
DX: R53.1 Weakness (principal); E11.65 Type 2 diabetes mellitus with hyperglycemia; Z87.891 Personal history of nicotine dependence; Z88.5 Allergy status to narcotic agent; Z88.8 Allergy status to other drugs, medicaments and biological substances
CPT/HCPCS: 36415; 70450; 80048; 81001; 82550; 82962; 83735; 84100; 85025; 93005; 99285; P9612